=== PATIENT | male | born 1975 | race Caucasian/White ===

== ENCOUNTER 2016-11-16 16:44 | Inpatient (IN) | payer OTHER ==
[2016-11-16 18:32] VITALS: BMI 22.3
--- NOTE | 2016-11-16 21:10 | HP ---
Admission [facility] Chief Complaint: REFERRED BY RESIDENTIAL PROGRAM FOR REHAB TXMENT Allergies/Adverse Reactions: Allergies Allergy/AdvReac Type Severity Reaction Status Date / Time No Known Allergies Allergy Verified 06/30/16 14:28 History of Present Illness: 41 Y.O MALE WITH OPIOID DEPENDENCE KNOWN TO [facility] HERE FOR REHAB SERVICES. CLIENT IS CURRENTLY ON MMTP AT [facility] AND ALSO IN THEIR RESIDENTIAL PROGRAM. HE WAS REFERRED FOR CONTINUAL USE OF HEROIN AND COCAINE. LAST METHADONE DOSE TODAY PER PT. Exam Limitations: Physical Impairment (L KNEE BRACE FOR KNEE PATHOLOGY) - Ebola screening Have you traveled outside of the country in the last 21 days: No Have you had contact with anyone from an Ebola affected area: No Have you been sick,other than usual withdrawal symptoms: No Do you have a fever: No - Review of Systems Constitutional: No Symptoms Reported EENT: reports: No Symptoms Reported Respiratory: reports: No Symptoms reported Cardiac: reports: No Symptoms Reported GI: reports: No Symptoms Reported Musculoskeletal: reports: Joint Pain (L KNEE/ R HIP) Integumentary: reports: No Symptoms Reported Neuro: reports: Headache, Seizure (LAST ONE 4 MONTHS AGO. NOT DRUG RELATED) Endocrine: reports: No Symptoms Reported Hematology: reports: No Symptoms Reported Psychiatric: reports: No Sypmtoms Reported Other Systems: Reviewed and Negative Patient History - Patient Medical History Hx Anemia: No Hx Asthma: No Hx Chronic Obstructive Pulmonary Disease (COPD): No Hx Cancer: No Hx Cardiac Disorders: No Hx Congestive Heart Failure: No Hx Hypertension: No Hx Hypercholesterolemia: No Hx Pacemaker: No HX Cerebrovascular Accident: No Hx Seizures: No Hx Dementia: No Hx Diabetes: No Hx Gastrointestinal Disorders: No Hx Liver Disease: No Hx Genitourinary Disorders: No Hx Sexually Transmitted Disorders: No Hx Renal Disease (ESRD): No Hx Thyroid Disease: No Hx Human Immunodeficiency Virus (HIV): No (negative) Hx Hepatitis C: Yes (NO TXMENT) Hx Depression: No Hx Suicide Attempt: No (denies) Hx Bipolar Disorder: No Hx Schizophrenia: No Other Medical History: L KNEE AND RIGHT HIP PAIN - Patient Surgical History Past Surgical History: Yes Hx Neurologic Surgery: Yes (abscess remove right side of brain 2015) Hx Cataract Extraction: No Hx Cardiac Surgery: No Hx Lung Surgery: No Hx Breast Surgery: No Hx Breast Biopsy: No Hx Abdominal Surgery: No Hx Appendectomy: No Hx Cholecystectomy: No Hx Genitourinary Surgery: No Hx Section: No Hx Orthopedic Surgery: No Anesthesia Reaction: No - PPD History Previous Implant?: Yes Documented Results: Negative w/proof Implanted On Prior [facility] Admission?: Yes Date: 07/02/16 Results: 0MM PPD to be Administered?: No - Smoking Cessation Smoking history: Current every day smoker Have you smoked in the past 12 months: Yes Aproximately how many cigarettes per day: 10 Cigars Per Day: 0 Hx Chewing Tobacco Use: No Initiated information on smoking cessation: Yes 'Breaking Loose' booklet given: 11/16/16 - Substance & Tx. History Hx Alcohol Use: No Hx Substance Use: Yes Substance Use Type: Cocaine, Heroin Hx Substance Use Treatment: Yes ([facility]) - Substances Abused HEROIN Route: Injection Frequency: Daily Amount used: 5 BAGS Age of first use: 17 Date of Last Use: 11/13/16 COCAINE Route: Smoking Frequency: 1-2 times per week Amount used: 1/2 GM Age of first use: 17 Date of Last Use: 11/13/16 Family Disease History - Family Disease History Family History: Denies Admission Physical Exam [facility] - Vital Signs Vital Signs: Vital Signs - 24 hr 11/16/16 18:30 Temperature 98.6 F Pulse Rate 77 Respiratory 18 Rate Blood Pressure 107/65 - Physical General Appearance: Yes: No Apparent Distress, Appropriately Dressed HEENTM: Yes: Normal ENT Inspection, Normocephalic, Normal Voice, JAYESH, Pharynx Normal Respiratory: Yes: Chest Non-Tender, Lungs Clear, Normal Breath Sounds, No Respiratory Distress, No Accessory Muscle Use Neck: Yes: No masses,lesions,Nodules, Supple, Trachea in good position Breast: Yes: Breast Exam Deferred Cardiology: Yes: Regular Rhythm, Regular Rate, S1, S2 Abdominal: Yes: Normal Bowel Sounds, Non Tender Genitourinary: Yes: Within Normal Limits Back: Yes: Normal Inspection Musculoskeletal: Yes: Joint Stiffness (LROM TO L KNEE AND R HIP), Other ( AMBULATES WITH LIMP 2/2 PAIN AND LIMITED ROM) Extremities: Yes: Other (L KNEE BRACE) Neurological: Yes: mask inspector II-XII NML intact, Fully Oriented, Alert Integumentary: Yes: Track Nichole Lymphatic: Yes: Within Normal Limits - Diagnostic (1) Cocaine dependence Current Visit: Yes Status: Chronic Qualifiers: Substance use status: uncomplicated Qualified Code(s): F14.20 - Cocaine dependence, uncomplicated (2) Nicotine dependence Current Visit: Yes Status: Chronic Qualifiers: Nicotine product type: cigarettes Substance use status: uncomplicated Qualified Code(s): F17.210 - Nicotine dependence, cigarettes, uncomplicated (3) Methadone maintenance therapy patient Current Visit: Yes Status: Chronic Cleared for Admission [facility] - Detox or Rehab Claeared for Rehab Admission: Yes S Breath Alcohol Content Breath Alcohol Content: 0 Urine Drug Screen - Results Drug Screen Negative: No Urine Drug Screen Results: RADHA-Cocaine, OPI-Opiates, MTD-Methadone
[2016-11-16] MEDS ORDERED: MAGNESIUM CITRATE 300 ML BOTTLE PO PRN (21:19)
[2016-11-16] MEDS ORDERED: P-EPHED 60MG/TRIPROLIDI 2.5MG TABLET PO PRN (21:19)
[2016-11-16] MEDS ORDERED: MAG HYDROX/AL HYDROX/SIMETH 30 ML UNIT-DOSE CUP PO PRN (21:19)
[2016-11-16] MEDS ORDERED: NICOTINE POLACRILEX 2 MG GUM BC PRN (21:19)
[2016-11-16] MEDS ORDERED: hydrOXYzine PAMOATE 50 MG CAPSULE (FP) PO PRN (21:19)
[2016-11-16] MEDS ORDERED: guaiFENesin/D-METHORPHAN HB 10 ML UNIT-DOSE CUPS PO PRN (21:19)
[2016-11-16] MEDS ORDERED: ACETAMINOPHEN 325 MG TABLET (FP) PO PRN (21:19)
[2016-11-16] MEDS ORDERED: IBUPROFEN 600 MG TABLET (FP) PO PRN (21:19)
[2016-11-16] MEDS ORDERED: LOPERAMIDE HCL 2 MG CAPSULE PO PRN (21:19)
[2016-11-16] MEDS ORDERED: MAGNESIUM HYDROX 2400MG/30ML ORAL SUSPENSION 30 ML CUP PO PRN (21:19)
[2016-11-16] MEDS ORDERED: MENTHOL/PHENOL 1 EACH UD MM PRN (21:19)
[2016-11-16] MEDS: THIAMINE HCL 100 MG TABLET (FP) PO SCH (21:55)
[2016-11-16] MEDS: levETIRAcetam 500 MG TABLET (FP) PO SCH (21:55)
[2016-11-16 23:19] LABS: URINE APPEARANCE CLEAR; URINE BILIRUBIN NEGATIVE (NEGATIVE); URINE BLOOD NEGATIVE (NEGATIVE); URINE COLOR YELLOW; URINE GLUCOSE (UA) NEGATIVE (NEGATIVE); URINE KETONE NEGATIVE (NEGATIVE); URINE LEUK ESTERASE TRACE (NEGATIVE); URINE NITRITE NEGATIVE (NEGATIVE); URINE PROTEIN NEGATIVE (NEGATIVE); URINE UROBILINOGEN 2.0 E.U/dl E.U./dl (0.2-1.0)
[2016-11-16 23:21] LABS: URINE BACTERIA RARE /hpf (NONE SEEN); URINE MUCUS RARE; URINE WBC 1 /hpf (3-5)
[2016-11-17] MEDS ORDERED: METHADONE HCL 10 MG TABLET PO ONE (08:39)
[2016-11-17] MEDS ORDERED: METHADONE 120 MG, METHADONE 10 MG PO ONE (09:09)
[2016-11-17] MEDS ORDERED: METHADONE HCL 40 MG DISPERSABLE TABLET ONE (09:23)
[2016-11-17] MEDS ORDERED: METHADONE HCL 10 MG TABLET ONE (09:23)
[2016-11-17] MEDS: NICOTINE 14 MG/24 HOURS TOPICAL PATCH TD SCH ×2 (09:43→16:41)
[2016-11-17] MEDS: PRENATAL VITAMINS W/ FOLIC ACID TABLET (FP) PO SCH (09:43)
[2016-11-17] MEDS: levETIRAcetam 500 MG TABLET (FP) PO SCH ×2 (09:43→21:05)
[2016-11-17 10:18] LABS: MCH 28.1 pg (25.7-33.7); MCHC 33.5 g/dl (32.0-35.9); MEAN CELL VOLUME 83.9 fl (80-96); MEAN PLT VOLUME 9.2 fl (7.5-11.1); PLATELET COUNT 186 K/MM3 (134-434); RDW 14.9 % (11.9-15.9); WHITE BLOOD COUNT 5.6 K/mm3 (4.0-10.0)
[2016-11-17 10:29] LABS: ALBUMIN 3.8 g/dl (3.4-5.0); ALK PHOS 97 U/L (45-117); ANION GAP 5 (8-16); BILIRUBIN,TOTAL 0.5 mg/dL (0.2-1.0); CALCIUM 9.1 mg/dL (8.5-10.1); CO2 30 mmol/L (21-32); GLUCOSE,RANDOM 77 mg/dL (74-106); SGOT/AST 26 U/L (15-37); SGPT/ALT 39 U/L (12-78); TOT PROT 7.2 g/dl (6.4-8.2)
--- NOTE | 2016-11-17 13:58 | HP ---
Psychiatrist Admission - Data Date of interview: 11/17/16 Admission source: [facility] Identifying data: This is the second [facility] admision for this 41 years old single male, unemployed, living in [facility] residential program Medical History: Significant for history of Hep C , left knee & right hip pain, Seizure Disorder and S/P removal abscess right side of brain. Patient attends [facility] and is on methadone 130 mg. Smokes 10 cigarettes daily Psychiatric History: Denies history of previous psychiatric treatment Physical/Sexual Abuse/Trauma History: Denies history of physical, sexual abuse as DV relationship Additional Comment: Reports history of multiple arrests including 2 felony convictions. Denies being currently on parole/probation Vital Signs: Vital Signs - 24 hr 11/16/16 11/17/16 11/17/16 18:30 02:37 06:00 Temperature 98.6 F 98.1 F Pulse Rate 77 57 L Respiratory 18 16 18 Rate Blood Pressure 107/65 109/55 Allergies/Adverse Reactions: Allergies Allergy/AdvReac Type Severity Reaction Status Date / Time No Known Allergies Allergy Verified 06/30/16 14:28 Date of last physical exam: 11/16/16 Concur with the findings of this exam: Yes - Substance Abuse/Tx History Hx Alcohol Use: No Hx Substance Use: Yes Substance Use Type: Cocaine (Started using cocaine at age 17, consumes half da gram 1-2 times weekly. Last used on 11/13/16), Heroin (Started using heroin at age 17, consumes 5 bags daily. Last used on 11/13/16) Hx Substance Use Treatment: Yes (2 previous inpt detox & one inpt rehab(Aug 2011 ) @ [facility]) - Admission Criteria Previous failed treatment: No Poor recovery environment: Yes Comorbidities: Yes Lacks judgement: Yes Mental Status Exam - Mental Status Exam Alert and Oriented to: Time, Place, Person Cognitive Function: Fair Patient Appearance: Well Groomed Mood: Hopeful, Euthymic Affect: Appropriate Patient Behavior: Cooperative Speech Pattern: Clear Voice Loudness: Normal Thought Process: Intact Hallucinations: Denies Suicidal Ideation: Denies Homicidal Ideation: Denies Insight/Judgement: Fair Sleep: Poorly Appetite: Fair Muscle strength/Tone: Normal Gait/Station: Normal Psychiatric Findings - Problem List ([place] 1, 2,3) (1) Opioid dependence with withdrawal Current Visit: No Status: Chronic (2) Cocaine dependence Current Visit: Yes Status: Chronic Qualifiers: Substance use status: uncomplicated Qualified Code(s): F14.20 - Cocaine dependence, uncomplicated (3) Opioid dependence on agonist therapy Current Visit: Yes Status: Acute (4) Nicotine dependence Current Visit: Yes Status: Chronic Qualifiers: Nicotine product type: cigarettes Substance use status: uncomplicated Qualified Code(s): F17.210 - Nicotine dependence, cigarettes, uncomplicated (5) Substance-induced sleep disorder Current Visit: Yes Status: Acute - Initial Treatment Plan Initial Treatment Plan: 1) Start Trazadone 100 mg po HS. 2) Monitor progress
[2016-11-17] MEDS: THIAMINE HCL 100 MG TABLET (FP) PO SCH (21:05)
[2016-11-17] MEDS: traZODone HCL 100 MG TABLET (FP) PO SCH (21:05)
[2016-11-18] MEDS ORDERED: METHADONE HCL 10 MG TABLET ONE (04:09)
[2016-11-18] MEDS ORDERED: METHADONE HCL 40 MG DISPERSABLE TABLET ONE (04:09)
[2016-11-18] MEDS ORDERED: METHADONE HCL 40 MG DISPERSABLE TABLET PO SCH (06:00)
[2016-11-18] MEDS: METHADONE 120 MG, METHADONE 10 MG PO SCH (06:43)
[2016-11-18] MEDS: PRENATAL VITAMINS W/ FOLIC ACID TABLET (FP) PO SCH (10:24)
[2016-11-18] MEDS: levETIRAcetam 500 MG TABLET (FP) PO SCH ×2 (10:25→21:43)
[2016-11-18] MEDS: NICOTINE 14 MG/24 HOURS TOPICAL PATCH TD SCH (10:25)
[2016-11-18] MEDS: THIAMINE HCL 100 MG TABLET (FP) PO SCH (21:43)
[2016-11-18] MEDS: traZODone HCL 100 MG TABLET (FP) PO SCH (21:43)
[2016-11-19] MEDS ORDERED: METHADONE HCL 10 MG TABLET ONE (03:42)
[2016-11-19] MEDS ORDERED: METHADONE HCL 40 MG DISPERSABLE TABLET ONE (03:43)
[2016-11-19] MEDS: METHADONE 120 MG, METHADONE 10 MG PO SCH (06:25)
[2016-11-19] MEDS: PRENATAL VITAMINS W/ FOLIC ACID TABLET (FP) PO SCH (10:45)
[2016-11-19] MEDS: NICOTINE 14 MG/24 HOURS TOPICAL PATCH TD SCH (10:45)
[2016-11-19] MEDS: levETIRAcetam 500 MG TABLET (FP) PO SCH ×2 (10:46→21:10)
[2016-11-19] MEDS: THIAMINE HCL 100 MG TABLET (FP) PO SCH (21:10)
[2016-11-19] MEDS: traZODone HCL 100 MG TABLET (FP) PO SCH (21:10)
[2016-11-20] MEDS ORDERED: METHADONE HCL 40 MG DISPERSABLE TABLET ONE (03:54)
[2016-11-20] MEDS ORDERED: METHADONE HCL 10 MG TABLET ONE (03:54)
[2016-11-20] MEDS: METHADONE 120 MG, METHADONE 10 MG PO SCH (06:24)
[2016-11-20] MEDS: PRENATAL VITAMINS W/ FOLIC ACID TABLET (FP) PO SCH (10:26)
[2016-11-20] MEDS: levETIRAcetam 500 MG TABLET (FP) PO SCH ×2 (10:26→21:04)
[2016-11-20] MEDS: NICOTINE 14 MG/24 HOURS TOPICAL PATCH TD SCH (10:27)
[2016-11-20] MEDS: traZODone HCL 100 MG TABLET (FP) PO SCH (21:04)
[2016-11-20] MEDS: THIAMINE HCL 100 MG TABLET (FP) PO SCH (21:04)
[2016-11-21] MEDS ORDERED: METHADONE HCL 40 MG DISPERSABLE TABLET ONE (05:10)
[2016-11-21] MEDS ORDERED: METHADONE HCL 10 MG TABLET ONE (05:10)
[2016-11-21] MEDS: METHADONE 120 MG, METHADONE 10 MG PO SCH (06:45)
[2016-11-21] MEDS: NICOTINE 14 MG/24 HOURS TOPICAL PATCH TD SCH (10:12)
[2016-11-21] MEDS: levETIRAcetam 500 MG TABLET (FP) PO SCH ×2 (10:12→21:04)
[2016-11-21] MEDS: PRENATAL VITAMINS W/ FOLIC ACID TABLET (FP) PO SCH (10:12)
[2016-11-21] MEDS: LIDOCAINE 5% TOPICAL PATCH TP SCH (15:08)
[2016-11-21] MEDS: THIAMINE HCL 100 MG TABLET (FP) PO SCH (21:04)
[2016-11-21] MEDS: traZODone HCL 100 MG TABLET (FP) PO SCH (21:04)
[2016-11-22] MEDS ORDERED: METHADONE HCL 40 MG DISPERSABLE TABLET ONE (04:07)
[2016-11-22] MEDS ORDERED: METHADONE HCL 10 MG TABLET ONE (04:07)
[2016-11-22] MEDS: METHADONE 120 MG, METHADONE 10 MG PO SCH (06:27)
[2016-11-22] MEDS ORDERED: levETIRAcetam 250 MG TABLET (FP) PO ONE (09:19)
[2016-11-22] MEDS: NICOTINE 14 MG/24 HOURS TOPICAL PATCH TD SCH (10:06)
[2016-11-22] MEDS: PRENATAL VITAMINS W/ FOLIC ACID TABLET (FP) PO SCH (10:06)
[2016-11-22] MEDS: LIDOCAINE 5% TOPICAL PATCH TP SCH (10:06)
[2016-11-22] MEDS: levETIRAcetam 500 MG TABLET (FP) PO SCH ×2 (10:07→21:11)
[2016-11-22] MEDS: traZODone HCL 100 MG TABLET (FP) PO SCH (21:11)
[2016-11-22] MEDS: THIAMINE HCL 100 MG TABLET (FP) PO SCH (21:11)
[2016-11-23] MEDS ORDERED: METHADONE HCL 10 MG TABLET ONE (04:03)
[2016-11-23] MEDS ORDERED: METHADONE HCL 40 MG DISPERSABLE TABLET ONE (04:04)
[2016-11-23] MEDS: METHADONE 120 MG, METHADONE 10 MG PO SCH (06:23)
--- NOTE | 2016-11-23 09:39 | EKG ---
Test Reason : Blood Pressure : / mmHG Vent. Rate : 049 BPM Atrial Rate : 049 BPM P-R Int : 158 ms QRS Dur : 096 ms QT Int : 468 ms P-R-T Axes : 038 082 069 degrees QTc Int : 422 ms SINUS BRADYCARDIA OTHERWISE NORMAL ECG NO PREVIOUS ECGS AVAILABLE Confirmed by KIMBERLEY MOODY, KIRK ([id number]) on 11/23/2016 9:39:09 AM Referred By: Confirmed By:KIRK CHU MD
[2016-11-23] MEDS: levETIRAcetam 500 MG TABLET (FP) PO SCH ×2 (10:34→21:14)
[2016-11-23] MEDS: PRENATAL VITAMINS W/ FOLIC ACID TABLET (FP) PO SCH (10:34)
[2016-11-23] MEDS: LIDOCAINE 5% TOPICAL PATCH TP SCH (10:34)
[2016-11-23] MEDS: NICOTINE 14 MG/24 HOURS TOPICAL PATCH TD SCH (10:35)
[2016-11-23] MEDS: THIAMINE HCL 100 MG TABLET (FP) PO SCH (21:14)
[2016-11-23] MEDS: traZODone HCL 100 MG TABLET (FP) PO SCH (21:14)
[2016-11-24] MEDS ORDERED: METHADONE HCL 10 MG TABLET ONE (04:02)
[2016-11-24] MEDS ORDERED: METHADONE HCL 40 MG DISPERSABLE TABLET ONE (04:03)
[2016-11-24] MEDS: METHADONE 120 MG, METHADONE 10 MG PO SCH (06:14)
[2016-11-24] MEDS: LIDOCAINE 5% TOPICAL PATCH TP SCH (10:19)
[2016-11-24] MEDS: levETIRAcetam 500 MG TABLET (FP) PO SCH ×2 (10:19→21:00)
[2016-11-24] MEDS: PRENATAL VITAMINS W/ FOLIC ACID TABLET (FP) PO SCH (10:19)
[2016-11-24] MEDS: NICOTINE 14 MG/24 HOURS TOPICAL PATCH TD SCH (10:20)
[2016-11-24] MEDS: diphenhydrAMINE HCL 50 MG CAPSULE PO PRN (21:00)
[2016-11-24] MEDS: traZODone HCL 100 MG TABLET (FP) PO SCH (21:00)
[2016-11-24] MEDS: THIAMINE HCL 100 MG TABLET (FP) PO SCH (21:00)
[2016-11-25] MEDS ORDERED: METHADONE HCL 40 MG DISPERSABLE TABLET ONE (04:08)
[2016-11-25] MEDS ORDERED: METHADONE HCL 10 MG TABLET ONE (04:08)
[2016-11-25] MEDS: METHADONE 120 MG, METHADONE 10 MG PO SCH (06:23)
[2016-11-25] MEDS: levETIRAcetam 500 MG TABLET (FP) PO SCH ×2 (10:41→21:25)
[2016-11-25] MEDS: PRENATAL VITAMINS W/ FOLIC ACID TABLET (FP) PO SCH (10:41)
[2016-11-25] MEDS: IBUPROFEN 400 MG TABLET (FP) PO PRN (10:42)
[2016-11-25] MEDS: LIDOCAINE 5% TOPICAL PATCH TP SCH (10:43)
[2016-11-25] MEDS: NICOTINE 14 MG/24 HOURS TOPICAL PATCH TD SCH (10:43)
[2016-11-25] MEDS: diphenhydrAMINE HCL 50 MG CAPSULE PO PRN (21:25)
[2016-11-25] MEDS: THIAMINE HCL 100 MG TABLET (FP) PO SCH (21:25)
[2016-11-25] MEDS: traZODone HCL 100 MG TABLET (FP) PO SCH (21:25)
[2016-11-26] MEDS ORDERED: METHADONE HCL 40 MG DISPERSABLE TABLET ONE (05:59)
[2016-11-26] MEDS ORDERED: METHADONE HCL 10 MG TABLET ONE (05:59)
[2016-11-26] MEDS: METHADONE 120 MG, METHADONE 10 MG PO SCH (06:41)
[2016-11-26] MEDS: NICOTINE 14 MG/24 HOURS TOPICAL PATCH TD SCH (10:55)
[2016-11-26] MEDS: LIDOCAINE 5% TOPICAL PATCH TP SCH (10:55)
[2016-11-26] MEDS: PRENATAL VITAMINS W/ FOLIC ACID TABLET (FP) PO SCH (10:55)
[2016-11-26] MEDS: levETIRAcetam 500 MG TABLET (FP) PO SCH ×2 (10:55→21:40)
[2016-11-26] MEDS: THIAMINE HCL 100 MG TABLET (FP) PO SCH (21:39)
[2016-11-26] MEDS: traZODone HCL 100 MG TABLET (FP) PO SCH (21:39)
[2016-11-26] MEDS: diphenhydrAMINE HCL 50 MG CAPSULE PO PRN (21:39)
[2016-11-27] MEDS ORDERED: METHADONE HCL 10 MG TABLET ONE (04:56)
[2016-11-27] MEDS ORDERED: METHADONE HCL 40 MG DISPERSABLE TABLET ONE (04:56)
[2016-11-27] MEDS: METHADONE 120 MG, METHADONE 10 MG PO SCH (06:59)
[2016-11-27] MEDS: LIDOCAINE 5% TOPICAL PATCH TP SCH (10:31)
[2016-11-27] MEDS: levETIRAcetam 500 MG TABLET (FP) PO SCH ×2 (10:31→21:43)
[2016-11-27] MEDS: PRENATAL VITAMINS W/ FOLIC ACID TABLET (FP) PO SCH (10:32)
[2016-11-27] MEDS: NICOTINE 14 MG/24 HOURS TOPICAL PATCH TD SCH (10:32)
[2016-11-27] MEDS ORDERED: traZODone HCL 50 MG TABLET (FP) ONE (21:42)
[2016-11-27] MEDS: diphenhydrAMINE HCL 50 MG CAPSULE PO PRN (21:43)
[2016-11-27] MEDS: THIAMINE HCL 100 MG TABLET (FP) PO SCH (21:43)
[2016-11-27] MEDS: traZODone HCL 100 MG TABLET (FP) PO SCH (21:43)
[2016-11-28] MEDS ORDERED: METHADONE HCL 40 MG DISPERSABLE TABLET ONE (05:32)
[2016-11-28] MEDS ORDERED: METHADONE HCL 10 MG TABLET ONE (05:32)
[2016-11-28] MEDS: METHADONE 120 MG, METHADONE 10 MG PO SCH (06:30)
[2016-11-28] MEDS: levETIRAcetam 500 MG TABLET (FP) PO SCH ×2 (10:32→21:03)
[2016-11-28] MEDS: PRENATAL VITAMINS W/ FOLIC ACID TABLET (FP) PO SCH (10:32)
[2016-11-28] MEDS: NICOTINE 14 MG/24 HOURS TOPICAL PATCH TD SCH (10:32)
[2016-11-28] MEDS: LIDOCAINE 5% TOPICAL PATCH TP SCH (11:01)
[2016-11-28] MEDS: THIAMINE HCL 100 MG TABLET (FP) PO SCH (21:03)
[2016-11-28] MEDS: traZODone HCL 100 MG TABLET (FP) PO SCH (21:03)
[2016-11-28] MEDS: diphenhydrAMINE HCL 50 MG CAPSULE PO PRN (21:03)
[2016-11-29] MEDS ORDERED: METHADONE HCL 40 MG DISPERSABLE TABLET ONE (04:17)
[2016-11-29] MEDS ORDERED: METHADONE HCL 10 MG TABLET ONE (04:17)
[2016-11-29] MEDS: METHADONE 120 MG, METHADONE 10 MG PO SCH (06:16)
[2016-11-29] MEDS: PRENATAL VITAMINS W/ FOLIC ACID TABLET (FP) PO SCH (10:40)
[2016-11-29] MEDS: levETIRAcetam 500 MG TABLET (FP) PO SCH ×2 (10:40→21:07)
[2016-11-29] MEDS: NICOTINE 14 MG/24 HOURS TOPICAL PATCH TD SCH (10:43)
[2016-11-29] MEDS: LIDOCAINE 5% TOPICAL PATCH TP SCH (10:43)
[2016-11-29] MEDS: diphenhydrAMINE HCL 50 MG CAPSULE PO PRN (21:07)
[2016-11-29] MEDS: THIAMINE HCL 100 MG TABLET (FP) PO SCH (21:07)
[2016-11-29] MEDS: traZODone HCL 100 MG TABLET (FP) PO SCH (21:07)
[2016-11-30] MEDS ORDERED: METHADONE HCL 10 MG TABLET ONE (05:10)
[2016-11-30] MEDS ORDERED: METHADONE HCL 40 MG DISPERSABLE TABLET ONE (05:11)
[2016-11-30] MEDS: METHADONE 120 MG, METHADONE 10 MG PO SCH (06:11)
[2016-11-30] MEDS: LIDOCAINE 5% TOPICAL PATCH TP SCH (10:25)
[2016-11-30] MEDS: PRENATAL VITAMINS W/ FOLIC ACID TABLET (FP) PO SCH (10:25)
[2016-11-30] MEDS: NICOTINE 14 MG/24 HOURS TOPICAL PATCH TD SCH (10:25)
[2016-11-30] MEDS: levETIRAcetam 500 MG TABLET (FP) PO SCH ×2 (10:25→21:01)
[2016-11-30] MEDS: IBUPROFEN 400 MG TABLET (FP) PO PRN (14:47)
[2016-11-30] MEDS: traZODone HCL 100 MG TABLET (FP) PO SCH (21:00)
[2016-11-30] MEDS: THIAMINE HCL 100 MG TABLET (FP) PO SCH (21:00)
[2016-11-30] MEDS: diphenhydrAMINE HCL 50 MG CAPSULE PO PRN (21:01)
[2016-12-01] MEDS ORDERED: METHADONE HCL 40 MG DISPERSABLE TABLET ONE (03:33)
[2016-12-01] MEDS ORDERED: METHADONE HCL 10 MG TABLET ONE (03:33)
[2016-12-01] MEDS: METHADONE 120 MG, METHADONE 10 MG PO SCH (06:40)
[2016-12-01] MEDS: levETIRAcetam 500 MG TABLET (FP) PO SCH ×2 (10:23→21:03)
[2016-12-01] MEDS: NICOTINE 14 MG/24 HOURS TOPICAL PATCH TD SCH (10:23)
[2016-12-01] MEDS: PRENATAL VITAMINS W/ FOLIC ACID TABLET (FP) PO SCH (10:23)
[2016-12-01] MEDS: LIDOCAINE 5% TOPICAL PATCH TP SCH (10:23)
[2016-12-01] MEDS: diphenhydrAMINE HCL 50 MG CAPSULE PO PRN (21:04)
[2016-12-01] MEDS: THIAMINE HCL 100 MG TABLET (FP) PO SCH (21:04)
[2016-12-01] MEDS: traZODone HCL 100 MG TABLET (FP) PO SCH (21:04)
[2016-12-02] MEDS ORDERED: METHADONE HCL 40 MG DISPERSABLE TABLET ONE (04:29)
[2016-12-02] MEDS ORDERED: METHADONE HCL 10 MG TABLET ONE (04:29)
[2016-12-02] MEDS: METHADONE 120 MG, METHADONE 10 MG PO SCH (06:14)
[2016-12-02] MEDS: PRENATAL VITAMINS W/ FOLIC ACID TABLET (FP) PO SCH (10:24)
[2016-12-02] MEDS: levETIRAcetam 500 MG TABLET (FP) PO SCH ×2 (10:24→21:04)
[2016-12-02] MEDS: NICOTINE 14 MG/24 HOURS TOPICAL PATCH TD SCH (10:25)
[2016-12-02] MEDS: LIDOCAINE 5% TOPICAL PATCH TP SCH (10:25)
[2016-12-02] MEDS: traZODone HCL 100 MG TABLET (FP) PO SCH (21:04)
[2016-12-02] MEDS: THIAMINE HCL 100 MG TABLET (FP) PO SCH (21:04)
[2016-12-02] MEDS: diphenhydrAMINE HCL 50 MG CAPSULE PO PRN (21:05)
[2016-12-03] MEDS ORDERED: METHADONE HCL 10 MG TABLET ONE (06:10)
[2016-12-03] MEDS ORDERED: METHADONE HCL 40 MG DISPERSABLE TABLET ONE (06:10)
[2016-12-03] MEDS: METHADONE 120 MG, METHADONE 10 MG PO SCH (06:25)
[2016-12-03] MEDS: LIDOCAINE 5% TOPICAL PATCH TP SCH (10:16)
[2016-12-03] MEDS: PRENATAL VITAMINS W/ FOLIC ACID TABLET (FP) PO SCH (10:16)
[2016-12-03] MEDS: levETIRAcetam 500 MG TABLET (FP) PO SCH ×2 (10:16→21:06)
[2016-12-03] MEDS: NICOTINE 14 MG/24 HOURS TOPICAL PATCH TD SCH (10:17)
[2016-12-03] MEDS: THIAMINE HCL 100 MG TABLET (FP) PO SCH (21:05)
[2016-12-03] MEDS: traZODone HCL 100 MG TABLET (FP) PO SCH (21:06)
[2016-12-03] MEDS: diphenhydrAMINE HCL 50 MG CAPSULE PO PRN (21:06)
[2016-12-04] MEDS ORDERED: METHADONE HCL 10 MG TABLET ONE (03:57)
[2016-12-04] MEDS ORDERED: METHADONE HCL 40 MG DISPERSABLE TABLET ONE (03:57)
[2016-12-04] MEDS: METHADONE 120 MG, METHADONE 10 MG PO SCH (06:24)
[2016-12-04] MEDS: levETIRAcetam 500 MG TABLET (FP) PO SCH ×2 (10:20→21:07)
[2016-12-04] MEDS: LIDOCAINE 5% TOPICAL PATCH TP SCH (10:20)
[2016-12-04] MEDS: PRENATAL VITAMINS W/ FOLIC ACID TABLET (FP) PO SCH (10:20)
[2016-12-04] MEDS: NICOTINE 14 MG/24 HOURS TOPICAL PATCH TD SCH (10:21)
[2016-12-04] MEDS: diphenhydrAMINE HCL 50 MG CAPSULE PO PRN (21:07)
[2016-12-04] MEDS: traZODone HCL 100 MG TABLET (FP) PO SCH (21:07)
[2016-12-04] MEDS: THIAMINE HCL 100 MG TABLET (FP) PO SCH (21:07)
[2016-12-05] MEDS ORDERED: METHADONE HCL 10 MG TABLET ONE (05:26)
[2016-12-05] MEDS ORDERED: METHADONE HCL 40 MG DISPERSABLE TABLET ONE (05:26)
[2016-12-05] MEDS: METHADONE 120 MG, METHADONE 10 MG PO SCH (06:20)
[2016-12-05] MEDS: PRENATAL VITAMINS W/ FOLIC ACID TABLET (FP) PO SCH (10:49)
[2016-12-05] MEDS: levETIRAcetam 500 MG TABLET (FP) PO SCH ×2 (10:49→21:34)
[2016-12-05] MEDS: LIDOCAINE 5% TOPICAL PATCH TP SCH (10:50)
[2016-12-05] MEDS: NICOTINE 14 MG/24 HOURS TOPICAL PATCH TD SCH (10:51)
[2016-12-05] MEDS: THIAMINE HCL 100 MG TABLET (FP) PO SCH (21:34)
[2016-12-05] MEDS: traZODone HCL 100 MG TABLET (FP) PO SCH (21:34)
[2016-12-05] MEDS: IBUPROFEN 400 MG TABLET (FP) PO PRN (21:34)
[2016-12-05] MEDS: diphenhydrAMINE HCL 50 MG CAPSULE PO PRN (21:34)
[2016-12-06] MEDS ORDERED: METHADONE HCL 40 MG DISPERSABLE TABLET ONE (04:21)
[2016-12-06] MEDS ORDERED: METHADONE HCL 10 MG TABLET ONE (04:21)
[2016-12-06] MEDS: METHADONE 120 MG, METHADONE 10 MG PO SCH (05:53)
[2016-12-06] MEDS ORDERED: METHADONE HCL 10 MG TABLET PO SCH (06:00)
[2016-12-06] MEDS: LIDOCAINE 5% TOPICAL PATCH TP SCH (10:22)
[2016-12-06] MEDS: levETIRAcetam 500 MG TABLET (FP) PO SCH ×2 (10:22→21:20)
[2016-12-06] MEDS: PRENATAL VITAMINS W/ FOLIC ACID TABLET (FP) PO SCH (10:22)
[2016-12-06] MEDS: NICOTINE 14 MG/24 HOURS TOPICAL PATCH TD SCH (10:22)
[2016-12-06] MEDS: traZODone HCL 100 MG TABLET (FP) PO SCH (21:20)
[2016-12-06] MEDS: THIAMINE HCL 100 MG TABLET (FP) PO SCH (21:20)
[2016-12-06] MEDS: IBUPROFEN 400 MG TABLET (FP) PO PRN (21:20)
[2016-12-06] MEDS: diphenhydrAMINE HCL 50 MG CAPSULE PO PRN (21:20)
[2016-12-07] MEDS ORDERED: METHADONE HCL 40 MG DISPERSABLE TABLET ONE (04:15)
[2016-12-07] MEDS ORDERED: METHADONE HCL 10 MG TABLET ONE (04:15)
[2016-12-07] MEDS: METHADONE 120 MG, METHADONE 10 MG PO SCH (06:38)
[2016-12-07] MEDS: PRENATAL VITAMINS W/ FOLIC ACID TABLET (FP) PO SCH (10:18)
[2016-12-07] MEDS: levETIRAcetam 500 MG TABLET (FP) PO SCH ×2 (10:18→21:01)
[2016-12-07] MEDS: LIDOCAINE 5% TOPICAL PATCH TP SCH (10:19)
[2016-12-07] MEDS: NICOTINE 14 MG/24 HOURS TOPICAL PATCH TD SCH (10:19)
[2016-12-07] MEDS: traZODone HCL 100 MG TABLET (FP) PO SCH (21:01)
[2016-12-07] MEDS: IBUPROFEN 400 MG TABLET (FP) PO PRN (21:02)
[2016-12-07] MEDS: diphenhydrAMINE HCL 50 MG CAPSULE PO PRN (21:02)
[2016-12-07] MEDS: THIAMINE HCL 100 MG TABLET (FP) PO SCH (21:02)
[2016-12-08] MEDS ORDERED: METHADONE HCL 40 MG DISPERSABLE TABLET ONE (03:49)
[2016-12-08] MEDS ORDERED: METHADONE HCL 10 MG TABLET ONE (03:49)
[2016-12-08] MEDS: METHADONE 120 MG, METHADONE 10 MG PO SCH (06:28)
[2016-12-08] MEDS: PRENATAL VITAMINS W/ FOLIC ACID TABLET (FP) PO SCH (10:00)
[2016-12-08] MEDS: levETIRAcetam 500 MG TABLET (FP) PO SCH ×2 (10:00→21:09)
[2016-12-08] MEDS: LIDOCAINE 5% TOPICAL PATCH TP SCH (10:00)
[2016-12-08] MEDS: NICOTINE 14 MG/24 HOURS TOPICAL PATCH TD SCH (10:01)
[2016-12-08] MEDS: diphenhydrAMINE HCL 50 MG CAPSULE PO PRN (21:08)
[2016-12-08] MEDS: THIAMINE HCL 100 MG TABLET (FP) PO SCH (21:08)
[2016-12-08] MEDS: traZODone HCL 100 MG TABLET (FP) PO SCH (21:09)
[2016-12-08] MEDS: IBUPROFEN 400 MG TABLET (FP) PO PRN (21:09)
[2016-12-09] MEDS ORDERED: METHADONE HCL 10 MG TABLET ONE (04:34)
[2016-12-09] MEDS ORDERED: METHADONE HCL 40 MG DISPERSABLE TABLET ONE (04:34)
[2016-12-09] MEDS: METHADONE 120 MG, METHADONE 10 MG PO SCH (06:24)
[2016-12-09] MEDS: levETIRAcetam 500 MG TABLET (FP) PO SCH ×2 (10:15→21:22)
[2016-12-09] MEDS: PRENATAL VITAMINS W/ FOLIC ACID TABLET (FP) PO SCH (10:15)
[2016-12-09] MEDS: NICOTINE 14 MG/24 HOURS TOPICAL PATCH TD SCH (10:16)
[2016-12-09] MEDS: LIDOCAINE 5% TOPICAL PATCH TP SCH (10:16)
[2016-12-09] MEDS: diphenhydrAMINE HCL 50 MG CAPSULE PO PRN (21:21)
[2016-12-09] MEDS: traZODone HCL 100 MG TABLET (FP) PO SCH (21:21)
[2016-12-09] MEDS: THIAMINE HCL 100 MG TABLET (FP) PO SCH (21:21)
[2016-12-10] MEDS ORDERED: METHADONE HCL 10 MG TABLET ONE (05:37)
[2016-12-10] MEDS ORDERED: METHADONE HCL 40 MG DISPERSABLE TABLET ONE (05:37)
[2016-12-10] MEDS: METHADONE 120 MG, METHADONE 10 MG PO SCH (06:38)
[2016-12-10] MEDS: levETIRAcetam 500 MG TABLET (FP) PO SCH ×2 (10:26→21:01)
[2016-12-10] MEDS: PRENATAL VITAMINS W/ FOLIC ACID TABLET (FP) PO SCH (10:26)
[2016-12-10] MEDS: LIDOCAINE 5% TOPICAL PATCH TP SCH (10:26)
[2016-12-10] MEDS: NICOTINE 14 MG/24 HOURS TOPICAL PATCH TD SCH (10:27)
[2016-12-10] MEDS: diphenhydrAMINE HCL 50 MG CAPSULE PO PRN (21:00)
[2016-12-10] MEDS: THIAMINE HCL 100 MG TABLET (FP) PO SCH (21:00)
[2016-12-10] MEDS: traZODone HCL 100 MG TABLET (FP) PO SCH (21:01)
[2016-12-10] MEDS: IBUPROFEN 400 MG TABLET (FP) PO PRN (21:01)
[2016-12-11] MEDS ORDERED: METHADONE HCL 40 MG DISPERSABLE TABLET ONE (05:41)
[2016-12-11] MEDS ORDERED: METHADONE HCL 10 MG TABLET ONE (05:41)
[2016-12-11] MEDS: METHADONE 120 MG, METHADONE 10 MG PO SCH (06:39)
[2016-12-11] MEDS: levETIRAcetam 500 MG TABLET (FP) PO SCH ×2 (10:04→21:01)
[2016-12-11] MEDS: LIDOCAINE 5% TOPICAL PATCH TP SCH (10:04)
[2016-12-11] MEDS: NICOTINE 14 MG/24 HOURS TOPICAL PATCH TD SCH (10:04)
[2016-12-11] MEDS: PRENATAL VITAMINS W/ FOLIC ACID TABLET (FP) PO SCH (10:04)
[2016-12-11] MEDS: diphenhydrAMINE HCL 50 MG CAPSULE PO PRN (21:01)
[2016-12-11] MEDS: traZODone HCL 100 MG TABLET (FP) PO SCH (21:01)
[2016-12-11] MEDS: IBUPROFEN 400 MG TABLET (FP) PO PRN (21:01)
[2016-12-11] MEDS: THIAMINE HCL 100 MG TABLET (FP) PO SCH (21:01)
[2016-12-12] MEDS ORDERED: METHADONE HCL 40 MG DISPERSABLE TABLET ONE (04:15)
[2016-12-12] MEDS ORDERED: METHADONE HCL 10 MG TABLET ONE (04:15)
[2016-12-12] MEDS: METHADONE 120 MG, METHADONE 10 MG PO SCH (06:42)
[2016-12-12] MEDS: levETIRAcetam 500 MG TABLET (FP) PO SCH ×2 (10:23→21:17)
[2016-12-12] MEDS: PRENATAL VITAMINS W/ FOLIC ACID TABLET (FP) PO SCH (10:23)
[2016-12-12] MEDS: NICOTINE 14 MG/24 HOURS TOPICAL PATCH TD SCH (10:24)
[2016-12-12] MEDS: LIDOCAINE 5% TOPICAL PATCH TP SCH (10:24)
[2016-12-12] MEDS: traZODone HCL 100 MG TABLET (FP) PO SCH (21:17)
[2016-12-12] MEDS: THIAMINE HCL 100 MG TABLET (FP) PO SCH (21:17)
[2016-12-12] MEDS: diphenhydrAMINE HCL 50 MG CAPSULE PO PRN (21:18)
[2016-12-13] MEDS ORDERED: METHADONE HCL 10 MG TABLET ONE (05:39)
[2016-12-13] MEDS ORDERED: METHADONE HCL 40 MG DISPERSABLE TABLET ONE (05:40)
[2016-12-13] MEDS: METHADONE 120 MG, METHADONE 10 MG PO SCH (06:33)
[2016-12-13] MEDS: PRENATAL VITAMINS W/ FOLIC ACID TABLET (FP) PO SCH (10:13)
[2016-12-13] MEDS: levETIRAcetam 500 MG TABLET (FP) PO SCH ×2 (10:13→21:00)
[2016-12-13] MEDS: LIDOCAINE 5% TOPICAL PATCH TP SCH (10:13)
[2016-12-13] MEDS: NICOTINE 14 MG/24 HOURS TOPICAL PATCH TD SCH (10:14)
[2016-12-13] MEDS: THIAMINE HCL 100 MG TABLET (FP) PO SCH (21:00)
[2016-12-13] MEDS: traZODone HCL 100 MG TABLET (FP) PO SCH (21:00)
[2016-12-13] MEDS: diphenhydrAMINE HCL 50 MG CAPSULE PO PRN (21:01)
[2016-12-13] MEDS: IBUPROFEN 400 MG TABLET (FP) PO PRN (21:01)
[2016-12-14] MEDS ORDERED: METHADONE HCL 10 MG TABLET ONE (04:20)
[2016-12-14] MEDS ORDERED: METHADONE HCL 40 MG DISPERSABLE TABLET ONE (04:20)
[2016-12-14] MEDS: METHADONE 120 MG, METHADONE 10 MG PO SCH (06:26)
[2016-12-14] MEDS: PRENATAL VITAMINS W/ FOLIC ACID TABLET (FP) PO SCH (10:08)
[2016-12-14] MEDS: levETIRAcetam 500 MG TABLET (FP) PO SCH ×2 (10:08→21:01)
[2016-12-14] MEDS: LIDOCAINE 5% TOPICAL PATCH TP SCH (10:08)
[2016-12-14] MEDS: NICOTINE 14 MG/24 HOURS TOPICAL PATCH TD SCH (10:10)
[2016-12-14] MEDS: diphenhydrAMINE HCL 50 MG CAPSULE PO PRN (21:01)
[2016-12-14] MEDS: IBUPROFEN 400 MG TABLET (FP) PO PRN (21:01)
[2016-12-14] MEDS: traZODone HCL 100 MG TABLET (FP) PO SCH (21:01)
[2016-12-14] MEDS: THIAMINE HCL 100 MG TABLET (FP) PO SCH (21:01)
[2016-12-15] MEDS ORDERED: METHADONE HCL 40 MG DISPERSABLE TABLET ONE (05:31)
[2016-12-15] MEDS ORDERED: METHADONE HCL 10 MG TABLET ONE (05:31)
[2016-12-15] MEDS: METHADONE 120 MG, METHADONE 10 MG PO SCH (07:14)
[2016-12-15 07:52] VITALS: BP 93/53; PULSE 60; TEMP 98
--- NOTE | 2016-12-15 10:10 | PN ---
Psychiatric Progress Note Vital Signs: Vital Signs Period Temp Pulse Resp BP Sys/Singh Pulse Ox Last 24 Hr 98 F 60 18-18 93/53 Date of Session: 12/15/16 Chief Complaint:: Psychiatrist Discharge Note HPI: Patient addressing Opoid and Cocaine Dependence comorbid with Nicotine Dependence and Substance-Induced Sleep Disorder Current Medications: Active Medications Generic Name Dose Route Start Last Admin Trade Name Freq PRN Reason Stop Dose Admin Acetaminophen 650 mg 11/16/16 21:19 Tylenol - PO Q4H PRN PAIN Al Hydroxide/Mg Hydroxide 30 ml 11/16/16 21:19 Mylanta Oral Suspension - PO Q6H PRN DYSPEPSIA Diphenhydramine HCl 50 mg 11/16/16 21:19 12/14/16 21:01 Benadryl - PO 50 mg HSMR1 PRN Administration INSOMNIA Eucalyptus/Menthol/Phenol/Sorbitol 1 each 11/16/16 21:19 Cepastat Lozenge - MM Q4H PRN SORE THROAT Guaifenesin 10 ml 11/16/16 21:19 Robitussin Dm - PO Q6H PRN COUGH Hydroxyzine Pamoate 50 mg 11/16/16 21:19 Vistaril - PO Q4H PRN AGITATION Ibuprofen 800 mg 11/17/16 14:42 12/14/16 21:01 Motrin - PO 800 mg Q6H PRN Administration SEVERE PAIN Levetiracetam 500 mg 11/16/16 22:00 12/14/16 21:01 Keppra - PO 500 mg BID YRN Administration Lidocaine 1 patch 11/21/16 10:00 12/14/16 10:08 Lidoderm Patch - TP 1 patch DAILY YRN Administration Loperamide HCl 4 mg 11/16/16 21:19 Imodium - PO Q6H PRN DIARRHEA Magnesium Citrate 300 ml 11/16/16 21:19 Citroma - PO Q48H PRN CONSTIPATION Magnesium Hydroxide 30 ml 11/16/16 21:19 Milk Of Magnesia - PO DAILY PRN CONSTIPATION Methadone HCl 120 mg/ 130 mg 12/12/16 06:00 12/15/16 07:14 Methadone HCl 10 mg PO 130 mg DAILY@0600 YRN Administration Nicotine 14 mg 11/16/16 21:30 12/14/16 10:10 Nicoderm Patch - TD Not Given DAILY YRN Nicotine Polacrilex 2 mg 11/16/16 21:19 Nicorette Gum - BC Q2H PRN NICOTINE REPLACEMENT RX Multivit/Folic Acid/Iron 1 tab 11/17/16 10:00 12/14/16 10:08 Vitamins (Sjr) - PO 1 tab DAILY YRN Administration Pseudoephedrine/Triprolidine 1 combo 11/16/16 21:19 Actifed - PO TID PRN NASAL CONGESTION Thiamine HCl 100 mg 11/16/16 22:00 12/14/16 21:01 Vitamin B1 - PO 100 mg HS YRN Administration Trazodone HCl 100 mg 11/17/16 22:00 12/14/16 21:01 Desyrel - PO 100 mg HS YRN Administration Current Side Effect: No Lab tests ordered: Yes Lab tests reviewed: Yes Provider note:: Patient has completed this program today. He has met his treatment goals and will continue to address his issues in outpatient treatment at [facility]. 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 He responded well to Trazadone 100 mg po HS for insomnia. Script for that medication is electronically transmitted to [facility] at [address] [place] [address]. He is stable for discharge today Total face to face time:: 35 Mental Status Exam - Mental Status Exam Alert and Oriented to: Time, Place, Person Cognitive Function: Fair Patient Appearance: Well Groomed Mood: Hopeful, Euthymic Affect: Appropriate Patient Behavior: Cooperative Speech Pattern: Clear Voice Loudness: Normal Thought Process: Intact Thought Disorder: Not Present Hallucinations: Denies Suicidal Ideation: Denies Homicidal Ideation: Denies Insight/Judgement: Fair Sleep: Fair Appetite: Good Muscle strength/Tone: Normal Gait/Station: Normal Psychiatric Treatment Plan - Problem List (1) Opioid dependence with withdrawal Current Visit: No (2) Cocaine dependence Current Visit: Yes Qualifiers: Substance use status: uncomplicated Qualified Code(s): F14.20 - Cocaine dependence, uncomplicated (3) Opioid dependence on agonist therapy Current Visit: Yes (4) Nicotine dependence Current Visit: Yes Qualifiers: Nicotine product type: cigarettes Substance use status: uncomplicated Qualified Code(s): F17.210 - Nicotine dependence, cigarettes, uncomplicated (5) Substance-induced sleep disorder Current Visit: Yes Initial treatment plan: Patient is discharged today and referred to [facility] for outpatient treatment
[2016-12-15] MEDS: PRENATAL VITAMINS W/ FOLIC ACID TABLET (FP) PO SCH (10:30)
[2016-12-15] MEDS: NICOTINE 14 MG/24 HOURS TOPICAL PATCH TD SCH (10:30)
[2016-12-15] MEDS: LIDOCAINE 5% TOPICAL PATCH TP SCH (10:30)
[2016-12-15] MEDS: levETIRAcetam 500 MG TABLET (FP) PO SCH (10:31)
== END 2016-12-15 10:55 | disposition home or self-care (01) | DRG 772 ==
LOC: YASAS 16:44 → Y3W 20:24
PROVIDERS: ADMIT Psychiatry & Neurology Psychiatry; ATTEND Psychiatry & Neurology Psychiatry
PROC: HZ42ZZZ Group Counseling for Substance Abuse Treatment, Cognitive-Behavioral (ICD-10-PCS; principal; 2016-12-15)
DX: F14.20 Cocaine dependence, uncomplicated (principal); F17.210 Nicotine dependence, cigarettes, uncomplicated; F19.282 Other psychoactive substance dependence with psychoactive substance-induced sleep disorder
CPT/HCPCS: 36415; 80053; 81003; 81015; 85027; 86593; 93005; 93010

== ENCOUNTER 2017-02-12 11:44 | Inpatient (IN) | payer OTHER ==
[2017-02-12 12:10] VITALS: BMI 23.4
--- NOTE | 2017-02-12 14:37 | HP ---
Admission [facility] Allergies/Adverse Reactions: Allergies Allergy/AdvReac Type Severity Reaction Status Date / Time No Known Allergies Allergy Verified 02/12/17 13:35 - Ebola screening Have you traveled outside of the country in the last 21 days: No Have you had contact with anyone from an Ebola affected area: No Have you been sick,other than usual withdrawal symptoms: No Do you have a fever: No Patient History - Patient Medical History Hx Anemia: No Hx Asthma: No Hx Chronic Obstructive Pulmonary Disease (COPD): No Hx Cancer: No Hx Cardiac Disorders: No Hx Congestive Heart Failure: No Hx Hypertension: No Hx Hypercholesterolemia: No Hx Pacemaker: No HX Cerebrovascular Accident: No Hx Seizures: Yes (2 months ago) Hx Dementia: No Hx Diabetes: No Hx Gastrointestinal Disorders: No Hx Liver Disease: No Hx Genitourinary Disorders: No Hx Sexually Transmitted Disorders: No Hx Renal Disease (ESRD): No Hx Thyroid Disease: No Hx Human Immunodeficiency Virus (HIV): No (negative) Hx Hepatitis C: Yes (NO TXMENT) Hx Depression: No Hx Suicide Attempt: No Hx Bipolar Disorder: No Hx Schizophrenia: No - Patient Surgical History Past Surgical History: Yes Hx Neurologic Surgery: Yes (had craniotomy to remove abscess on the brain 2014) Hx Cataract Extraction: No Hx Cardiac Surgery: No Hx Lung Surgery: No Hx Breast Surgery: No Hx Breast Biopsy: No Hx Abdominal Surgery: No Hx Appendectomy: No Hx Cholecystectomy: No Hx Genitourinary Surgery: No Hx Section: No Hx Orthopedic Surgery: No Anesthesia Reaction: No - PPD History Previous Implant?: Yes Documented Results: Negative w/proof Implanted On Prior [facility] Admission?: Yes Date: 07/02/16 Results: 0 mm - Smoking Cessation Smoking history: Current every day smoker Have you smoked in the past 12 months: Yes Aproximately how many cigarettes per day: 10 Cigars Per Day: 0 Hx Chewing Tobacco Use: No Initiated information on smoking cessation: Yes 'Breaking Loose' booklet given: 02/13/17 - Substances Abused Heroin Route: Injection Frequency: Daily Amount used: 10 bags Age of first use: 17 Date of Last Use: 02/11/17 Cocaine Route: Smoking Frequency: Daily Amount used: 2 gms Age of first use: 17 Date of Last Use: 02/11/17 Admission Physical Exam S - Vital Signs Vital Signs: Vital Signs - 24 hr 02/12/17 12:08 Temperature 103.0 F H Pulse Rate 103 H Respiratory 20 Rate Blood Pressure 126/82 Screened but not Admitted - Documentation of Visit Screened but not Admitted: Yes Left Prior to Completion of Assessment: No Level of Care Recommended at this Time: ER Evaluation/Care Additional Information/Explanation: patient is idris Christine. history of fay morales had surgery in [place] in 2015 hospitalization for 3 months. limping on ambualtion atated has avvasular necrosis right hip seen in [facility] was told to be avascular necrosis. pain in left knee was told to have lesion in left knee? [facility]. impression fevrile r/o sepsis. transfer to [facility] er for evaluation and treatment,and medical clearance,. spoke with dr garza,rensorted by [facility] Breath Alcohol Content Breath Alcohol Content: 0 Urine Drug Screen - Results Drug Screen Negative: No Urine Drug Screen Results: RADHA-Cocaine, OPI-Opiates
[2017-02-13] MEDS ORDERED: NICOTINE POLACRILEX 4 MG GUM BC PRN (01:09)
[2017-02-13] MEDS ORDERED: LOPERAMIDE HCL 2 MG CAPSULE PO PRN (01:09)
[2017-02-13] MEDS ORDERED: guaiFENesin/D-METHORPHAN HB 10 ML UNIT-DOSE CUPS PO PRN (01:09)
[2017-02-13] MEDS ORDERED: METHADONE HCL 10 MG TABLET (FOR DETOX USE ONLY) PO ONE ×3 (01:09→23:00)
[2017-02-13] MEDS ORDERED: MAG HYDROX/AL HYDROX/SIMETH 30 ML UNIT-DOSE CUP PO PRN (01:09)
[2017-02-13] MEDS ORDERED: hydrOXYzine PAMOATE 50 MG CAPSULE (FP) PO PRN (01:09)
[2017-02-13] MEDS ORDERED: IBUPROFEN 400 MG TABLET (FP) PO PRN (01:09)
[2017-02-13] MEDS ORDERED: diphenhydrAMINE HCL 50 MG CAPSULE PO PRN (01:09)
[2017-02-13] MEDS ORDERED: MENTHOL/PHENOL 1 EACH UD MM PRN (01:09)
[2017-02-13] MEDS ORDERED: ACETAMINOPHEN 325 MG TABLET (FP) PO PRN (01:09)
[2017-02-13] MEDS ORDERED: MAGNESIUM HYDROX 2400MG/30ML ORAL SUSPENSION 30 ML CUP PO PRN (01:09)
[2017-02-13] MEDS ORDERED: MAGNESIUM CITRATE 300 ML BOTTLE PO PRN (01:09)
[2017-02-13] MEDS ORDERED: P-EPHED 60MG/TRIPROLIDI 2.5MG TABLET PO PRN (01:09)
--- NOTE | 2017-02-13 01:22 | HP ---
COWS - Scale Resting Pulse: 1= [place] 81-100 Sweatin= Chills/Flushing Restless Observation: 1= Difficult to Sit Still Pupil Size: 1= Pupils >than Normal Bone or Joint Aches: 2= Severe Diffuse Aches Runny Nose/ Eye Tearin= Runny Nose/Eyes GI Upset > 30mins: 1= Stomach Cramp Tremor Observation: 1= Tremor [place], Not Seen Yawning Observation: 1= 1-2x During Session Anxiety or Irritability: 1=Feels Anxious/Irritable Goose Flesh Skin: 3=Piloerection COWS Score: 15 Admission ROS [facility] Chief Complaint: WITHDRAWAL SYMPTOMS Allergies/Adverse Reactions: Allergies Allergy/AdvReac Type Severity Reaction Status Date / Time No Known Allergies Allergy Verified 02/12/17 13:35 History of Present Illness: 41 Y.O. MAN WITH EXTENSIVE H/O OF HEROINE AND COCAINE DEPENDENCE IS SEEKING DETOX. HE WAS HERE PREVIOUSLY FOR REHAB IN 11/2016. HE RETURNS FROM [facility] ER AFTER BEING EVALUATED FOR A FEVER AND TO R/O SEPSIS. HE WAS MEDICALLY CLEARED TO CONTINUE DETOX. Exam Limitations: Physical Impairment (UNSTEADY GAIT) - Ebola screening Have you traveled outside of the country in the last 21 days: No Have you had contact with anyone from an Ebola affected area: No Have you been sick,other than usual withdrawal symptoms: No Do you have a fever: No - Review of Systems Constitutional: Chills, Diaphoresis, Loss of Appetite, Night Sweats, Unintentional Wgt. Loss EENT: reports: Tearing, Nose Congestion Respiratory: reports: No Symptoms reported Cardiac: reports: No Symptoms Reported GI: reports: Poor Appetite : reports: No Symptoms Reported Musculoskeletal: reports: No Symptoms Reported, Other (REPORTS AVASCULAR NECROSIS OF RIGHT HIP) Integumentary: reports: No Symptoms Reported Neuro: reports: Headache, Seizure (2 MONTHS PRIOR) Endocrine: reports: No Symptoms Reported Hematology: reports: No Symptoms Reported Psychiatric: reports: No Sypmtoms Reported Other Systems: Reviewed and Negative Patient History - Patient Medical History Hx Anemia: No Hx Asthma: No Hx Chronic Obstructive Pulmonary Disease (COPD): No Hx Cancer: No Hx Cardiac Disorders: No Hx Congestive Heart Failure: No Hx Hypertension: No Hx Hypercholesterolemia: No Hx Pacemaker: No HX Cerebrovascular Accident: No Hx Seizures: Yes (2 months ago) Hx Dementia: No Hx Diabetes: No Hx Gastrointestinal Disorders: No Hx Liver Disease: No Hx Genitourinary Disorders: No Hx Sexually Transmitted Disorders: No Hx Renal Disease (ESRD): No Hx Thyroid Disease: No Hx Human Immunodeficiency Virus (HIV): No (negative) Hx Hepatitis C: Yes (NO TXMENT) Hx Depression: No Hx Suicide Attempt: No Hx Bipolar Disorder: No Hx Schizophrenia: No - Patient Surgical History Past Surgical History: Yes Hx Neurologic Surgery: Yes (had craniotomy to remove abscess on the brain 2014) Hx Cataract Extraction: No Hx Cardiac Surgery: No Hx Lung Surgery: No Hx Breast Surgery: No Hx Breast Biopsy: No Hx Abdominal Surgery: No Hx Appendectomy: No Hx Cholecystectomy: No Hx Genitourinary Surgery: No Hx Section: No Hx Orthopedic Surgery: No Anesthesia Reaction: No - PPD History Previous Implant?: Yes Documented Results: Negative w/proof Implanted On Prior [facility] Admission?: Yes Date: 07/02/16 Results: 0 mm PPD to be Administered?: No - Reproductive History Patient is a Female of Child Bearing Age (11 -55 yrs old): No - Smoking Cessation Smoking history: Current every day smoker Have you smoked in the past 12 months: Yes Aproximately how many cigarettes per day: 10 Cigars Per Day: 0 Hx Chewing Tobacco Use: No Initiated information on smoking cessation: Yes 'Breaking Loose' booklet given: 02/13/17 - Substance & Tx. History Hx Alcohol Use: No Hx Substance Use: Yes Substance Use Type: Cocaine, Heroin Hx Substance Use Treatment: Yes ( REHAB AND DETOX) - Substances Abused Heroin Route: Injection Frequency: Daily Amount used: 10 bags Age of first use: 17 Date of Last Use: 02/11/17 Cocaine Route: Smoking Frequency: Daily Amount used: 2 gms Age of first use: 17 Date of Last Use: 02/11/17 Family Disease History - Family Disease History Family History: Denies Admission Physical Exam BHS - Vital Signs Vital Signs: Last Vital Signs Temp Pulse Resp BP Pulse Ox 100 F H 86 17 134/72 02/13/17 01:44 02/13/17 01:44 02/13/17 01:44 02/13/17 01:44 - Physical General Appearance: Yes: Sweating, Anxious HEENTM: Yes: Hearing grossly Normal, Normal Voice Respiratory: Yes: Chest Non-Tender, Lungs Clear, Normal Breath Sounds, No Respiratory Distress, No Accessory Muscle Use Neck: Yes: No masses,lesions,Nodules, Trachea in good position Breast: Yes: Breast Exam Deferred Cardiology: Yes: Regular Rhythm, Regular Rate Abdominal: Yes: Normal Bowel Sounds, Non Tender, Flat Genitourinary: Yes: Other (NO COMPLAINTS REPORTED) Back: Yes: Normal Inspection Musculoskeletal: Yes: Back pain, Other (UNSTEADY GAIT; REPORTS HAVING A DX OF AVASCULAR NECROSIS OF RIGHT HIP. PT OFFERED CANE TO ASSIST WITH AMBULATION BUT REFUSED.) Extremities: Yes: Normal Inspection, Normal Range of Motion, Non-Tender Neurological: Yes: Fully Oriented, Alert, Motor Strength 5/5, Normal Mood/Affect , Normal Response Integumentary: Yes: Normal Color, Dry, Warm Lymphatic: Yes: Within Normal Limits - Diagnostic (1) Cocaine dependence Current Visit: Yes Status: Chronic Qualifiers: Substance use status: uncomplicated Qualified Code(s): F14.20 - Cocaine dependence, uncomplicated (2) Nicotine dependence Current Visit: Yes Status: Chronic Qualifiers: Nicotine product type: cigarettes Substance use status: uncomplicated Qualified Code(s): F17.210 - Nicotine dependence, cigarettes, uncomplicated (3) Opioid dependence with withdrawal Current Visit: Yes Status: Chronic (4) History of seizures Current Visit: Yes Status: Chronic (5) Hepatitis C Current Visit: Yes Status: Chronic Cleared for Admission [facility] - Detox or Rehab [facility] Level of Care: Medically Managed Detox Regimen/Protocol: Methadone [facility] Breath Alcohol Content Breath Alcohol Content: 0 Vital Signs - Vital Signs Vital Signs Refused: No Temperature: 100 F Temperature Source: Oral Pulse Rate: 86 Respiratory Rate: 17 Blood Pressure: 134/72 BP Location: Left Arm Blood Pressure Position: Sitting - Height Height: 5 ft 11 in - Weight Weight: 168 lb Weight Measurement Method: Standing Scale Body Mass Index (BMI): 23.4 Urine Drug Screen - Test Device Lot Number: [id number] Expiration Date: 10/12/18 - Control Is Test Valid: No - Results Drug Screen Negative: No Urine Drug Screen Results: RADHA-Cocaine, OPI-Opiates
[2017-02-13] MEDS: diazePAM 5 MG TABLET PO PRN ×4 (02:15→22:33)
[2017-02-13] MEDS: levETIRAcetam 500 MG TABLET (FP) PO SCH ×2 (11:02→22:33)
[2017-02-13] MEDS: NICOTINE 14 MG/24 HOURS TOPICAL PATCH TD SCH (11:02)
[2017-02-13] MEDS: PRENATAL VITAMINS W/ FOLIC ACID TABLET (FP) PO SCH (11:03)
--- NOTE | 2017-02-13 11:46 | PN ---
BHS COWS - Scale Resting Pulse: 2= [place] 101-120 Sweatin=Flushed/Facial Moisture Restless Observation: 1= Difficult to Sit Still Pupil Size: 0= Normal to Room Light Bone or Joint Aches: 2= Severe Diffuse Aches Runny Nose/ Eye Tearin= Runny Nose/Eyes GI Upset > 30mins: 2= Nausea/Diarrhea Tremor Observation of Outstretched Hands: 2= Slight Tremor Visible Yawning Observation: 1= 1-2x During Session Anxiety or Irritability: 2=Irritable/Anxious Goose Flesh Skin: 0=Smooth Skin COWS Score: 16 BHS Progress Note (SOAP) Subjective: Sweating,interrupted sleep,restless,interrupted sleep,bone pain,restless Objective: 02/13/17 11:44 Last Vital Signs Temp Pulse Resp BP Pulse Ox 100 F H 86 17 134/72 02/13/17 02:02 02/13/17 02:02 02/13/17 02:02 02/13/17 02:02 Assessment: 02/13/17 11:45 Withdrawal sx. Plan: Continue detox
[2017-02-13] MEDS: LIDOCAINE 5% TOPICAL PATCH TP SCH (14:46)
[2017-02-13 18:04] LABS: URINE APPEARANCE CLEAR; URINE BILIRUBIN NEGATIVE (NEGATIVE); URINE BLOOD NEGATIVE (NEGATIVE); URINE COLOR DKYELLOW; URINE GLUCOSE (UA) NEGATIVE (NEGATIVE); URINE KETONE 1+ (NEGATIVE); URINE LEUK ESTERASE NEGATIVE (NEGATIVE); URINE NITRITE NEGATIVE (NEGATIVE); URINE PROTEIN NEGATIVE (NEGATIVE); URINE UROBILINOGEN NEGATIVE E.U./dl (0.2-1.0)
[2017-02-13] MEDS: THIAMINE HCL 100 MG TABLET (FP) PO SCH (22:31)
[2017-02-14] MEDS ORDERED: IBUPROFEN 600 MG TABLET (FP) PO PRN (09:19)
--- NOTE | 2017-02-14 09:29 | CONSULT ---
[facility] Psychiatric Consult - Data Date of interview: 02/14/17 Admission source: [facility] Identifying data: Mr Chandler is a 41 years old single male, unemployed with no source of income, homeless seeking detox treatment for heroin and cocaine Substance Abuse History: - Smoking Cessation. Smoking history: Current every day smoker. Have you smoked in the past 12 months: Yes. Aproximately how many cigarettes per day: 10. Cigars Per Day: 0. Hx Chewing Tobacco Use: No. Initiated information on smoking cessation: Yes. 'Breaking Loose' booklet given : 02/13/17. - Substance & Tx. History. Hx Alcohol Use: No. Hx Substance Use: Yes. Substance Use Type: Cocaine, Heroin. Hx Substance Use Treatment: Yes ( REHAB AND DETOX). - Substances Abused. Heroin. Route: Injection. Frequency: Daily. Amount used: 10 bags. Age of first use: 17. Date of Last Use: 02/11/17. Cocaine. Route: Smoking. Frequency: Daily. Amount used: 2 gms. Age of first use: 17. 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 However, reports experiencing difficulty to sleep Physical/Sexual Abuse/Trauma History: Denies history of physical, sexual abuse as DV relationship Additional Comment: Reports history of multiple arrests including 2 felony convictions. Denies being currently on parole/probation Mental Status Exam - Mental Status Exam Alert and Oriented to: Time, Place, Person Cognitive Function: Fair Patient Appearance: Well Groomed Mood: Hopeful, Euthymic Affect: Appropriate Patient Behavior: Cooperative Speech Pattern: Clear Voice Loudness: Normal Thought Process: Intact, Goal Oriented Thought Disorder: Not Present Hallucinations: Denies Suicidal Ideation: Denies Homicidal Ideation: Denies Insight/Judgement: Poor Sleep: Poorly Appetite: Good Muscle strength/Tone: Normal Gait/Station: Normal Psychiatric Findings - Problem List ([place] 1, 2,3) (1) Substance-induced sleep disorder Current Visit: No Status: Acute (2) Opioid dependence with withdrawal Current Visit: Yes Status: Chronic (3) Cocaine dependence Current Visit: Yes Status: Chronic Qualifiers: Substance use status: uncomplicated Qualified Code(s): F14.20 - Cocaine dependence, uncomplicated (4) Nicotine dependence Current Visit: Yes Status: Chronic Qualifiers: Nicotine product type: cigarettes Substance use status: uncomplicated Qualified Code(s): F17.210 - Nicotine dependence, cigarettes, uncomplicated (5) Hepatitis C Current Visit: Yes Status: Chronic (6) History of seizures Current Visit: Yes Status: Chronic - Initial Treatment Plan Initial Treatment Plan: Start Ambien 10 mg po HS prn for insomnia. Benefits vs Risks of medication discussed with patient and he agreed to try it
[2017-02-14 09:52] LABS: MCH 28.5 pg (25.7-33.7); MCHC 33.7 g/dl (32.0-35.9); MEAN CELL VOLUME 84.7 fl (80-96); MEAN PLT VOLUME 9.4 fl (7.5-11.1); PLATELET COUNT 141 K/MM3 (134-434); RDW 14.5 % (11.9-15.9); WHITE BLOOD COUNT 3.3 K/mm3 (4.0-10.0)
[2017-02-14 09:55] LABS: ALBUMIN 3.3 g/dl (3.4-5.0); ANION GAP 9 (8-16); CALCIUM 8.6 mg/dL (8.5-10.1); CO2 31 mmol/L (21-32); GLUCOSE,RANDOM 86 mg/dL (74-106)
[2017-02-14] MEDS ORDERED: METHADONE HCL 10 MG TABLET (FOR DETOX USE ONLY) PO ONE (10:00)
[2017-02-14 10:01] LABS: ALK PHOS 71 U/L (45-117); BILIRUBIN,TOTAL 0.2 mg/dL (0.2-1.0); CREATININE 0.8 mg/dL (0.7-1.3); SGOT/AST 30 U/L (15-37); SGPT/ALT 33 U/L (12-78); TOT PROT 6.3 g/dl (6.4-8.2)
[2017-02-14] MEDS: levETIRAcetam 500 MG TABLET (FP) PO SCH ×2 (10:42→22:36)
[2017-02-14] MEDS: LIDOCAINE 5% TOPICAL PATCH TP SCH (10:42)
[2017-02-14] MEDS: NICOTINE 14 MG/24 HOURS TOPICAL PATCH TD SCH (10:42)
[2017-02-14] MEDS: PRENATAL VITAMINS W/ FOLIC ACID TABLET (FP) PO SCH (10:42)
[2017-02-14] MEDS: diazePAM 5 MG TABLET PO PRN ×3 (10:44→22:36)
--- NOTE | 2017-02-14 10:55 | PN ---
S CIWA - CIWA Score Nausea/Vomitin-No Nausea/No Vomiting Muscle Tremors: 3 Anxiety: 4-Mod. Anxious/Guarded Agitation: 3 Paroxysmal Sweats: 3 Orientation: 0-Oriented Tacttile Disturbances: 2-Mild Itch/Numbness/Burn Auditory Disturbances: 0-None Visual Disturbances: 0-None Headache: 0-None Present CIWA-Ar Total Score: 15 BHS Progress Note (SOAP) Subjective: Anxiety,tremors,sweating,interrupted sleep,restless Objective: 02/14/17 10:53 Vital Signs - 8 hr 02/14/17 02/14/17 02/14/17 03:32 06:13 09:36 Temperature 98.4 F 98.5 F Pulse Rate 75 67 Respiratory 18 16 18 Rate Blood Pressure 95/66 104/70 Laboratory Tests 02/13/17 02/14/17 14:00 07:00 WBC 3.3 L RBC 4.05 Hgb 11.6 L Hct 34.3 L MCV 84.7 MCHC 33.7 RDW 14.5 Plt Count 141 MPV 9.4 Urine Color Dkyellow Urine Appearance Clear Urine pH 5.0 Ur Specific [place] 1.033 Urine Protein Negative Urine Glucose (UA) Negative Urine Ketones 1+ H Urine Blood Negative Urine Nitrite Negative Urine Bilirubin Negative Urine Urobilinogen Negative Ur Leukocyte Esterase Negative labs noted Assessment: 02/14/17 10:54 Withdrawal sx. Plan: Continue detox
[2017-02-14 11:39] LABS: HIV 1 & 2 AB NEGATIVE; HIV 1 AGp24 NEGATIVE
[2017-02-14] MEDS: THIAMINE HCL 100 MG TABLET (FP) PO SCH (22:36)
[2017-02-14] MEDS: ZOLPIDEM TARTRATE 10 MG TABLET (PARK CARE ONLY) PO PRN (22:36)
--- NOTE | 2017-02-14 22:48 | EKG ---
Test Reason : Blood Pressure : / mmHG Vent. Rate : 079 BPM Atrial Rate : 079 BPM P-R Int : 140 ms QRS Dur : 092 ms QT Int : 356 ms P-R-T Axes : 048 085 058 degrees QTc Int : 408 ms NORMAL SINUS RHYTHM NORMAL ECG WHEN COMPARED WITH ECG OF 17-NOV-2016 11:50, VENT. RATE HAS INCREASED BY 30 BPM Confirmed by DARIEL ELAM MD ([id number]) on 02/14/2017 10:48:10 PM Referred By: Confirmed By:DARIEL ELAM MD
[2017-02-15] MEDS ORDERED: METHADONE HCL 5 MG TABLET (FOR DETOX USE ONLY) PO ONE (10:00)
[2017-02-15] MEDS: PRENATAL VITAMINS W/ FOLIC ACID TABLET (FP) PO SCH (10:39)
[2017-02-15] MEDS: diazePAM 5 MG TABLET PO PRN ×2 (10:39→22:35)
[2017-02-15] MEDS: levETIRAcetam 500 MG TABLET (FP) PO SCH ×2 (10:39→22:33)
[2017-02-15] MEDS: LIDOCAINE 5% TOPICAL PATCH TP SCH (12:26)
[2017-02-15] MEDS: NICOTINE 14 MG/24 HOURS TOPICAL PATCH TD SCH (12:26)
--- NOTE | 2017-02-15 15:44 | PN ---
BHS Progress Note (SOAP) Subjective: Sweating,interrupted sleep,restless,joint pain. Objective: 02/15/17 15:43 Vital Signs - 8 hr 02/15/17 02/15/17 09:31 13:12 Temperature 99.1 F 96.9 F L Pulse Rate 68 61 Respiratory 18 18 Rate Blood Pressure 102/65 97/64 Laboratory Tests 02/13/17 02/14/17 02/14/17 14:00 07:00 07:00 WBC 3.3 L RBC 4.05 Hgb 11.6 L Hct 34.3 L MCV 84.7 MCHC 33.7 RDW 14.5 Plt Count 141 MPV 9.4 Sodium 142 Potassium 3.7 Chloride 102 Carbon Dioxide 31 Anion Gap 9 BUN 17 Creatinine 0.8 Creat Clearance w eGFR > 60 Random Glucose 86 Calcium 8.6 Total Bilirubin 0.2 D AST 30 ALT 33 D Alkaline Phosphatase 71 Total Protein 6.3 L Albumin 3.3 L Urine Color Dkyellow Urine Appearance Clear Urine pH 5.0 Ur Specific [place] 1.033 Urine Protein Negative Urine Glucose (UA) Negative Urine Ketones 1+ H Urine Blood Negative Urine Nitrite Negative Urine Bilirubin Negative Urine Urobilinogen Negative Ur Leukocyte Esterase Negative RPR Titer HIV 1&2 Antibody Screen HIV P24 Antigen 02/14/17 02/14/17 07:00 07:00 WBC RBC Hgb Hct MCV MCHC RDW Plt Count MPV Sodium Potassium Chloride Carbon Dioxide Anion Gap BUN Creatinine Creat Clearance w eGFR Random Glucose Calcium Total Bilirubin AST ALT Alkaline Phosphatase Total Protein Albumin Urine Color Urine Appearance Urine pH Ur Specific [place] Urine Protein Urine Glucose (UA) Urine Ketones Urine Blood Urine Nitrite Urine Bilirubin Urine Urobilinogen Ur Leukocyte Esterase RPR Titer Nonreactive HIV 1&2 Antibody Screen Negative HIV P24 Antigen Negative labs noted Assessment: 02/15/17 15:43 Withdrawal sx. Plan: Continue detox
[2017-02-15] MEDS: THIAMINE HCL 100 MG TABLET (FP) PO SCH (22:33)
[2017-02-15] MEDS: ZOLPIDEM TARTRATE 10 MG TABLET (PARK CARE ONLY) PO PRN (22:35)
[2017-02-16] MEDS ORDERED: METHADONE HCL 5 MG TABLET (FOR DETOX USE ONLY) PO ONE (10:00)
--- NOTE | 2017-02-16 10:47 | PN ---
[facility] Progress Note (SOAP) Subjective: Sweating,interrupted sleep,restless Objective: 02/16/17 10:45 Vital Signs - 8 hr 02/16/17 02/16/17 02/16/17 03:30 06:30 09:15 Temperature 97.7 F 96.8 F L Pulse Rate 56 L 57 L Respiratory 18 18 18 Rate Blood Pressure 97/61 105/64 Laboratory Tests 02/13/17 02/14/17 02/14/17 14:00 07:00 07:00 WBC 3.3 L RBC 4.05 Hgb 11.6 L Hct 34.3 L MCV 84.7 MCHC 33.7 RDW 14.5 Plt Count 141 MPV 9.4 Sodium 142 Potassium 3.7 Chloride 102 Carbon Dioxide 31 Anion Gap 9 BUN 17 Creatinine 0.8 Creat Clearance w eGFR > 60 Random Glucose 86 Calcium 8.6 Total Bilirubin 0.2 D AST 30 ALT 33 D Alkaline Phosphatase 71 Total Protein 6.3 L Albumin 3.3 L Urine Color Dkyellow Urine Appearance Clear Urine pH 5.0 Ur Specific [place] 1.033 Urine Protein Negative Urine Glucose (UA) Negative Urine Ketones 1+ H Urine Blood Negative Urine Nitrite Negative Urine Bilirubin Negative Urine Urobilinogen Negative Ur Leukocyte Esterase Negative RPR Titer HIV 1&2 Antibody Screen HIV P24 Antigen 02/14/17 02/14/17 07:00 07:00 WBC RBC Hgb Hct MCV MCHC RDW Plt Count MPV Sodium Potassium Chloride Carbon Dioxide Anion Gap BUN Creatinine Creat Clearance w eGFR Random Glucose Calcium Total Bilirubin AST ALT Alkaline Phosphatase Total Protein Albumin Urine Color Urine Appearance Urine pH Ur Specific [place] Urine Protein Urine Glucose (UA) Urine Ketones Urine Blood Urine Nitrite Urine Bilirubin Urine Urobilinogen Ur Leukocyte Esterase RPR Titer Nonreactive HIV 1&2 Antibody Screen Negative HIV P24 Antigen Negative labs npted Assessment: 02/16/17 10:46 Withdrawal sx. Plan: Continue detox
[2017-02-16] MEDS: NICOTINE 14 MG/24 HOURS TOPICAL PATCH TD SCH (10:52)
[2017-02-16] MEDS: PRENATAL VITAMINS W/ FOLIC ACID TABLET (FP) PO SCH (10:52)
[2017-02-16] MEDS: LIDOCAINE 5% TOPICAL PATCH TP SCH (10:52)
[2017-02-16] MEDS: levETIRAcetam 500 MG TABLET (FP) PO SCH ×2 (10:52→22:35)
[2017-02-16] MEDS: ZOLPIDEM TARTRATE 10 MG TABLET (PARK CARE ONLY) PO PRN (22:35)
[2017-02-16] MEDS: THIAMINE HCL 100 MG TABLET (FP) PO SCH (22:35)
[2017-02-17] MEDS ORDERED: METHADONE HCL 10 MG TABLET (FOR DETOX USE ONLY) PO ONE (10:00)
[2017-02-17] MEDS: PRENATAL VITAMINS W/ FOLIC ACID TABLET (FP) PO SCH (10:36)
[2017-02-17] MEDS: NICOTINE 14 MG/24 HOURS TOPICAL PATCH TD SCH (10:36)
[2017-02-17] MEDS: levETIRAcetam 500 MG TABLET (FP) PO SCH ×2 (10:36→22:20)
[2017-02-17] MEDS: LIDOCAINE 5% TOPICAL PATCH TP SCH ×2 (10:36→10:38)
--- NOTE | 2017-02-17 11:15 | PN ---
[facility] Progress Note (SOAP) Subjective: ANXIETY, SWEATS/CHILLS. Objective: 02/17/17 11:15 Vital Signs Temperature 97.5 F L 02/17/17 10:43 Pulse Rate 60 02/17/17 10:43 Respiratory Rate 18 02/17/17 10:43 Blood Pressure 105/65 02/17/17 10:43 O2 Sat by Pulse Oximetry (%) Laboratory Last Values WBC 3.3 K/mm3 (4.0-10.0) L 02/14/17 07:00 RBC 4.05 M/mm3 (4.00-5.60) 02/14/17 07:00 Hgb 11.6 GM/dL (11.7-16.9) L 02/14/17 07:00 Hct 34.3 % (35.4-49) L 02/14/17 07:00 MCV 84.7 fl (80-96) 02/14/17 07:00 MCHC 33.7 g/dl (32.0-35.9) 02/14/17 07:00 RDW 14.5 % (11.9-15.9) 02/14/17 07:00 Plt Count 141 K/MM3 (134-434) 02/14/17 07:00 MPV 9.4 fl (7.5-11.1) 02/14/17 07:00 Sodium 142 mmol/L (136-145) 02/14/17 07:00 Potassium 3.7 mmol/L (3.5-5.1) 02/14/17 07:00 Chloride 102 mmol/L (98-107) 02/14/17 07:00 Carbon Dioxide 31 mmol/L (21-32) 02/14/17 07:00 Anion Gap 9 (8-16) 02/14/17 07:00 BUN 17 mg/dL (7-18) 02/14/17 07:00 Creatinine 0.8 mg/dL (0.7-1.3) 02/14/17 07:00 Creat Clearance w eGFR > 60 (>60) 02/14/17 07:00 Random Glucose 86 mg/dL (74-106) 02/14/17 07:00 Calcium 8.6 mg/dL (8.5-10.1) 02/14/17 07:00 Total Bilirubin 0.2 mg/dL (0.2-1.0) D 02/14/17 07:00 AST 30 U/L (15-37) 02/14/17 07:00 ALT 33 U/L (12-78) D 02/14/17 07:00 Alkaline Phosphatase 71 U/L (45-117) 02/14/17 07:00 Total Protein 6.3 g/dl (6.4-8.2) L 02/14/17 07:00 Albumin 3.3 g/dl (3.4-5.0) L 02/14/17 07:00 Urine Color Dkyellow 02/13/17 14:00 Urine Appearance Clear 02/13/17 14:00 Urine pH 5.0 (5.0-8.0) 02/13/17 14:00 Ur Specific [place] 1.033 (1.001-1.035) 02/13/17 14:00 Urine Protein Negative (NEGATIVE) 02/13/17 14:00 Urine Glucose (UA) Negative (NEGATIVE) 02/13/17 14:00 Urine Ketones 1+ (NEGATIVE) H 02/13/17 14:00 Urine Blood Negative (NEGATIVE) 02/13/17 14:00 Urine Nitrite Negative (NEGATIVE) 02/13/17 14:00 Urine Bilirubin Negative (NEGATIVE) 02/13/17 14:00 Urine Urobilinogen Negative E.U./dl (0.2-1.0) 02/13/17 14:00 Ur Leukocyte Esterase Negative (NEGATIVE) 02/13/17 14:00 RPR Titer Nonreactive (NONREACTIVE) 02/14/17 07:00 HIV 1&2 Antibody Screen Negative 02/14/17 07:00 HIV P24 Antigen Negative 02/14/17 07:00 Assessment: 02/17/17 11:15 WITHDRAWAL SX Plan: CONTINUE DETOX
[2017-02-17] MEDS: THIAMINE HCL 100 MG TABLET (FP) PO SCH (22:20)
[2017-02-18] MEDS ORDERED: METHADONE HCL 5 MG TABLET (FOR DETOX USE ONLY) PO ONE (06:00)
[2017-02-18 06:31] VITALS: BP 101/66; PULSE 55; TEMP 97.3
--- NOTE | 2017-02-18 09:50 | DS ---
[facility] Detox Discharge Summary Admission Date: 02/13/17 Discharge Date: 02/18/17 - History Present History: Cocaine Dependence, Opioid Dependence Pertinent Past History: Hep c Seizure disorder - Physical Exam Results Vital Signs: Vital Signs Temperature 97.3 F L 02/18/17 06:31 Pulse Rate 55 L 02/18/17 06:31 Respiratory Rate 16 02/18/17 06:31 Blood Pressure 101/66 02/18/17 06:31 O2 Sat by Pulse Oximetry (%) Pertinent Admission Physical Exam Findings: Withdrawal sx. Laboratory Tests 02/13/17 02/14/17 02/14/17 14:00 07:00 07:00 WBC 3.3 L RBC 4.05 Hgb 11.6 L Hct 34.3 L MCV 84.7 MCHC 33.7 RDW 14.5 Plt Count 141 MPV 9.4 Sodium 142 Potassium 3.7 Chloride 102 Carbon Dioxide 31 Anion Gap 9 BUN 17 Creatinine 0.8 Creat Clearance w eGFR > 60 Random Glucose 86 Calcium 8.6 Total Bilirubin 0.2 D AST 30 ALT 33 D Alkaline Phosphatase 71 Total Protein 6.3 L Albumin 3.3 L Urine Color Dkyellow Urine Appearance Clear Urine pH 5.0 Ur Specific [place] 1.033 Urine Protein Negative Urine Glucose (UA) Negative Urine Ketones 1+ H Urine Blood Negative Urine Nitrite Negative Urine Bilirubin Negative Urine Urobilinogen Negative Ur Leukocyte Esterase Negative RPR Titer HIV 1&2 Antibody Screen HIV P24 Antigen 02/14/17 02/14/17 07:00 07:00 WBC RBC Hgb Hct MCV MCHC RDW Plt Count MPV Sodium Potassium Chloride Carbon Dioxide Anion Gap BUN Creatinine Creat Clearance w eGFR Random Glucose Calcium Total Bilirubin AST ALT Alkaline Phosphatase Total Protein Albumin Urine Color Urine Appearance Urine pH Ur Specific [place] Urine Protein Urine Glucose (UA) Urine Ketones Urine Blood Urine Nitrite Urine Bilirubin Urine Urobilinogen Ur Leukocyte Esterase RPR Titer Nonreactive HIV 1&2 Antibody Screen Negative HIV P24 Antigen Negative labs noted - Treatment Hospital Course: Detox Protocol Followed, Detoxed Safely, Responded well, Discharged Condition Good, Rehab Referral Accepted Patient has Accepted a Rehab Referral to: [facility] - Medication Discharge Medications: Ambulatory Orders Levetiracetam [Keppra -] 500 mg PO BID #60 tablet 12/15/16 - Diagnosis (1) Cocaine dependence Current Visit: Yes Status: Chronic Qualifiers: Substance use status: uncomplicated Qualified Code(s): F14.20 - Cocaine dependence, uncomplicated (2) Hepatitis C Current Visit: Yes Status: Chronic Qualifiers: Viral hepatitis chronicity: unspecified Hepatic coma status: without hepatic coma Qualified Code(s): B19.20 - Unspecified viral hepatitis C without hepatic coma (3) History of seizures Current Visit: Yes Status: Chronic (4) Nicotine dependence Current Visit: Yes Status: Chronic Qualifiers: Nicotine product type: cigarettes Substance use status: uncomplicated Qualified Code(s): F17.210 - Nicotine dependence, cigarettes, uncomplicated (5) Opioid dependence with withdrawal Current Visit: Yes Status: Chronic - AMA Did Patient Leave Against Medical Advice: No
== END 2017-02-18 09:16 | disposition home or self-care (01) | DRG 773 ==
LOC: YASAS 11:44 → UNDOADMIN 14:26 → Y6N 14:26 → Y3N 02-13 01:39
PROVIDERS: ADMIT Internal Medicine; ATTEND Internal Medicine
PROC: HZ2ZZZZ Detoxification Services for Substance Abuse Treatment (ICD-10-PCS; principal; 2017-02-18)
DX: F11.23 Opioid dependence with withdrawal (principal); F14.20 Cocaine dependence, uncomplicated; F17.210 Nicotine dependence, cigarettes, uncomplicated; F19.282 Other psychoactive substance dependence with psychoactive substance-induced sleep disorder; Z86.69 Personal history of other diseases of the nervous system and sense organs; B18.2 Chronic viral hepatitis C
CPT/HCPCS: 36415; 80053; 81003; 85027; 86593; 87389; 93005; 93010

== ENCOUNTER 2017-02-12 15:05 | Emergency (ER) | payer OTHER ==
[2017-02-12 15:32] VITALS: BMI 23.4
--- NOTE | 2017-02-12 16:54 | PDOC ---
History of Present Illness - General History Source: Patient Exam Limitations: No Limitations - History of Present Illness Initial Comments: 02/12/17 18:10 The patient is a 41 year old male, with significant past medical history of cocaine abuse (24 years), heroin abuse (IVDA, 10 bags/day for 24 years), brain abscess s/p craniotomy in 2014, avascular necrosis of the right hip, who presents today from [facility] complaining of fever and concerned about withdrawal. This morning the patient was febrile at 103 degrees. The patient was seen at [place] [facility] last night for a questionable lesion on the right knee. Today, the patient was ambulatory in the ER yet limping. He states that he is in withdrawal and asked if he was going to get methadone. Denies fever, chills, nausea, vomiting. Denies chest pain, SOB, cough. Allergies: none reported Surgical Hx: Craniotomy (2014) Social Hx: Cocaine abuse. Heroin abuse. <Natasha Manzanares - Last Filed: 02/12/17 23:18> <Priya Adkins - Last Filed: 02/13/17 01:35> - General Chief Complaint: Respiratory Stated Complaint: FEVER Time Seen by Provider: 02/12/17 16:31 Past History <Natasha Manzanares - Last Filed: 02/12/17 23:18> - Past Medical History Anemia: No Asthma: No Cancer: No Cardiac Disorders: No CVA: No COPD: No CHF: No Dementia: No Diabetes: No GI Disorders: No Disorders: No HTN: No Hypercholesterolemia: No Kidney Stones: No Liver Disease: No Suicide Attempt (Hx): No Seizures: Yes (2 months ago) Thyroid Disease: No - Surgical History Abdominal Surgery: No Appendectomy: No Cardiac Surgery: No Cholecystectomy: No Lung Surgery: No Neurologic Surgery: Yes (had craniotomy to remove abscess on the brain 2014) Orthopedic Surgery: No - Reproductive History Testicular Surgery: No - Psycho/Social/Smoking Cessation Hx Anxiety: No Suicidal Ideation: No Smoking History: Current every day smoker Have you smoked in the past 12 months: Yes Number of Cigarettes Smoked Daily: 10 Cigars Per Day: 0 Information on smoking cessation initiated: No 'Breaking Loose' booklet given: 02/13/17 Hx Alcohol Use: No Drug/Substance Use Hx: No Substance Use Type: None Hx Substance Use Treatment: No <Priya Adkins - Last Filed: 02/13/17 01:35> - Past Medical History Allergies/Adverse Reactions: Allergies Allergy/AdvReac Type Severity Reaction Status Date / Time No Known Allergies Allergy Verified 02/12/17 13:35 Home Medications: Ambulatory Orders Levetiracetam [Keppra -] 500 mg PO BID #60 tablet 12/15/16 Respiratory Specific PMHX - Complaint Specific PMHX TB (Tuberculosis): No <Priya Adkins - Last Filed: 02/13/17 01:35> Review of Systems - Review of Systems Comments:: 02/12/17 18:11 CONSTITUTIONAL: Present: fever. Absent: chills, diaphoresis, generalized weakness, malaise, loss of appetite HEENT: Absent: rhinorrhea, nasal congestion, throat pain, throat swelling, difficulty swallowing, mouth swelling, ear pain, eye pain, visual Changes CARDIOVASCULAR: Absent: chest pain, syncope, palpitations, irregular heart rate, lightheadedness , peripheral edema RESPIRATORY: Absent: cough, shortness of breath, dyspnea with exertion, orthopnea, wheezing, stridor, hemoptysis GASTROINTESTINAL: Absent: abdominal pain, abdominal distension, nausea, vomiting, diarrhea, constipation, melena, hematochezia GENITOURINARY: Absent: dysuria, frequency, urgency, hesitancy, hematuria, flank pain, genital pain MUSCULOSKELETAL: Absent: myalgia, arthralgia, joint swelling SKIN: Absent: rash, itching, pallor HEMATOLOGIC/IMMUNOLOGIC: Absent: easy bleeding, easy bruising, lymphadenopathy, frequent infections ENDOCRINE: Absent: unexplained weight gain, unexplained weight loss, heat intolerance, cold intolerance NEUROLOGIC: <Natasha Manzanares - Last Filed: 02/12/17 23:18> *Physical Exam - Vital Signs Last Vital Signs Temp Pulse Resp BP Pulse Ox 101.3 F H 95 H 18 117/65 100 02/12/17 15:05 02/12/17 15:05 02/12/17 15:05 02/12/17 15:05 02/12/17 15:05 - Physical Exam Comments: 02/12/17 18:11 GENERAL: Well developed, well nourished. Awake and alert. In no acute distress. HEENT: Normocephalic, atraumatic. PERRLA, EOMI. No conjunctival pallor. Sclera are non- icteric. Moist mucous membranes. Oropharynx is clear. NECK: Supple. Full ROM. No JVD. Carotid pulses 2+ and symmetric, without bruits. No thyromegaly. No lymphadenopathy. CARDIOVASCULAR: Tachycardic. Regular rhythm. No murmurs, rubs, or gallops. Distal pulses are 2+ and symmetric. PULMONARY: No evidence of respiratory distress. Lungs clear to auscultation bilaterally. No wheezing, rales or rhonchi. ABDOMINAL: Soft. Non-tender. Non-distended. No rebound or guarding. No organomegaly. Normoactive bowel sounds. MUSCULOSKELETAL Normal range of motion at all joints. No bony deformities or tenderness. No CVA tenderness. EXTREMITIES: No cyanosis. No clubbing. No edema. No calf tenderness. SKIN: +some track lines on his right forearm. Warm and dry. Normal capillary refill. No rashes. No jaundice. NEUROLOGICAL: Alert, awake, appropriate. Cranial nerves 2-12 intact. No deficits to light touch and temperature in face, upper extremities and lower extremities. No motor deficits in the in face, upper extremities and lower extremities. Normoreflexic in the upper and lower extremities. Normal speech. Toes are downgoing bilaterally. Gait is normal without ataxia. PSYCHIATRIC: Cooperative. Good eye contact. Appropriate mood and affect. <Natasha Manzanares - Last Filed: 02/12/17 23:18> - Vital Signs Last Vital Signs Temp Pulse Resp BP Pulse Ox 101.3 F H 95 H 18 117/65 100 02/12/17 15:05 02/12/17 15:05 02/12/17 15:05 02/12/17 15:05 02/12/17 15:05 <Priya Adkins - Last Filed: 02/13/17 01:35> ED Treatment Course - LABORATORY CBC & Chemistry Diagram: 02/12/17 17:43 02/12/17 17:43 - ADDITIONAL ORDERS Additional order review: Laboratory Results 02/12/17 17:43 INR 1.16 H PTT (Actin FS) 30.2 02/12/17 17:43 RBC 4.10 MCV 84.5 MCHC 33.4 RDW 14.3 MPV 9.0 Neutrophils % 62.6 Lymphocytes % 21.8 Monocytes % 15.3 H Eosinophils % 0.1 Basophils % 0.2 - RADIOLOGY Radiograph Interpretation: 02/12/17 21:16 EXAM: X-ray chest, one view FINDINGS: There is no evidence of infiltrate, pneumothorax or pleural fluid collection. The cardiomediastinal silhouette is normal in appearance. The bony structures are notable for the appearance of degenerative change in the right acromioclavicular joint with associated soft tissue swelling. IMPRESSION: 1. No evidence of an acute pulmonary process. 2. Appearance of degenerative change right acromioclavicular joint with associated soft tissue swelling THIS DOCUMENT HAS BEEN ELECTRONICALLY SIGNED Nuvia Sanchez MD 02/12/2017 21:11 EST 02/12/17 23:18 EXAM: CT HEAD WITHOUT CONTRAST No acute brain parenchymal abnormality. No hemorrhage, mass or acute territorial infarct. Right craniotomy with minimal encephalomalacia right frontal lobe, consistent with history of brain abscess. Mucoperiosteal thickening paranasal sinuses. Mucus retention cyst and small fluid right maxillary sinus. Visualized mastoid air cells clear. THIS DOCUMENT HAS BEEN ELECTRONICALLY SIGNED Angy Gonzalez M.D. 02/12/2017 23:15 EST <Natasha Manzanares - Last Filed: 02/12/17 23:18> - LABORATORY CBC & Chemistry Diagram: 02/12/17 17:43 02/12/17 17:43 <Priya Adkins - Last Filed: 02/13/17 01:35> Medical Decision Making - Medical Decision Making 02/13/17 01:28 this 41 yo male has presented to [facility] and during his intake interview it was found he had a 103 fever and was transported to the ER for further eval -pt denied any chest pain,abdominal pain, nausea,[id number],diarrhea. He has a slight occasional cough -he had track boone on arm,no erythema ,no cellulitis. Blood cultures were sent. Influenza swab -negative cxr -no infiltrates Urinalysis -negative for infection ct head -no abscess ,old craniotomy cbc no leukocytosis chemistries unremarkable I called [facility] and spoke with Dyana at extension [phone] and discussed the case. At this time he will be transported back to detox 02/13/17 01:32 <Priya Adkins - Last Filed: 02/13/17 01:35> *DC/Admit/Observation/Transfer - Attestations Scribe Attestion: 02/12/17 18:12 Documentation prepared by TANG Seth, acting as medical field representative for Priya Adkins MD. <Natasha Manzanares - Last Filed: 02/12/17 23:18> <Priya Adkins - Last Filed: 02/13/17 01:35> Diagnosis at time of Disposition: Fever Qualifiers: Fever type: unspecified Qualified Code(s): R50.9 - Fever, unspecified - Discharge Dispostion Disposition: I.P. ALCOHOL/SUBS ABUSE REHAB Condition at time of disposition: Stable - Patient Instructions Printed Discharge Instructions: DI for Fever (Symptom) -- Adult
[2017-02-12 17:47] LABS: BASOPHIL 0.2 % (0-2.0); EOSINOPHIL 0.1 % (0-4.5); MCH 28.2 pg (25.7-33.7); MCHC 33.4 g/dl (32.0-35.9); MEAN CELL VOLUME 84.5 fl (80-96); NEUTROPHILS 62.6 % (42.8-82.8); PLATELET COUNT 163 K/MM3 (134-434); RDW 14.3 % (11.9-15.9); WHITE BLOOD COUNT 3.7 K/mm3 (4.0-10.0)
[2017-02-12] MEDS ORDERED: ACETAMINOPHEN 325 MG TABLET (FP) ONE (17:49)
[2017-02-12 17:59] LABS: INR 1.16 (0.82-1.09); PROTHROMBIN TIME (PATIENT) 12.8 SEC (9.98-11.88)
[2017-02-12 18:01] LABS: ACTIVATED PTT 30.2 SECONDS (26.9-34.4)
[2017-02-12 18:08] LABS: VENOUS PH 7.43 (7.32-7.42)
[2017-02-12 18:09] LABS: ALBUMIN 3.7 g/dl (3.4-5.0); ANION GAP 12 (8-16); BILIRUBIN,TOTAL 0.4 mg/dL (0.2-1.0); CALCIUM 8.4 mg/dL (8.5-10.1); CO2 27 mmol/L (21-32); CREATININE 0.9 mg/dL (0.7-1.3); GLUCOSE,RANDOM 85 mg/dL (74-106); SGOT/AST 35 U/L (15-37); SGPT/ALT 42 U/L (12-78)
[2017-02-12 18:12] LABS: ALK PHOS 82 U/L (45-117); TROPONIN I < 0.02 ng/ml (0.00-0.05)
[2017-02-12 18:13] LABS: VENOUS BLOOD GAS HCO3 26.3 meq/L (19-25)
[2017-02-12 18:58] LABS: URINE APPEARANCE CLEAR; URINE BILIRUBIN NEGATIVE (NEGATIVE); URINE BLOOD NEGATIVE (NEGATIVE); URINE COLOR YELLOW; URINE GLUCOSE (UA) NEGATIVE (NEGATIVE); URINE KETONE 2+ (NEGATIVE); URINE LEUK ESTERASE NEGATIVE (NEGATIVE); URINE NITRITE NEGATIVE (NEGATIVE); URINE PROTEIN NEGATIVE (NEGATIVE); URINE UROBILINOGEN NEGATIVE E.U./dl (0.2-1.0)
[2017-02-12] MEDS ORDERED: ACETAMINOPHEN 500 MG TABLET (FP) PO ONE (19:11)
[2017-02-13 09:32] VITALS: BP 112/66; PULSE 79; TEMP 97.8
--- NOTE | 2017-02-14 22:51 | EKG ---
Test Reason : Blood Pressure : / mmHG Vent. Rate : 078 BPM Atrial Rate : 078 BPM P-R Int : 130 ms QRS Dur : 098 ms QT Int : 350 ms P-R-T Axes : 048 080 059 degrees QTc Int : 399 ms NORMAL SINUS RHYTHM NORMAL ECG WHEN COMPARED WITH ECG OF 17-NOV-2016 11:50, VENT. RATE HAS INCREASED BY 29 BPM Confirmed by DARIEL ELAM MD ([id number]) on 02/14/2017 10:50:44 PM Referred By: Confirmed By:DARIEL ELAM MD
== END 2017-02-13 00:04 | disposition other institution (70) ==
LOC: JER 15:05 → Y3N 02-13 01:39 → UNDOADMIN 02-13 01:39
DX: R50.9 Fever, unspecified (principal); F11.20 Opioid dependence, uncomplicated; F14.20 Cocaine dependence, uncomplicated; M87.88 Other osteonecrosis, other site
CPT/HCPCS: 36415; 70450-TC; 71010-TC; 80053; 81003; 82550; 82803; 83605; 84484; 85025; 85610; 85730; 86850; 86900; 86901; 87040; 87077; 87086; 87804; 93005; 93010; 99282-25